=== PATIENT | male | born 1965 | race Caucasian/White ===

== ENCOUNTER 2016-10-09 12:09 | Emergency (ER) | payer BC ==
[2016-10-09 12:39] VITALS: BP 148/105
--- NOTE | 2016-10-09 14:11 | UC ---
FLU HPI - HPI Summary HPI Summary: 1.5 WEEKS OF SINUS PRESSURE AND DISCOMFORT, WENT TO PRIMARY CARE AND GOT ANTIBIOTICS, AMOXICILLIN LIQUID, BUT THE DOSE WAS SAME DOSE FOR 7 YEAR OLD CHILD. SINUS PRESSURE AND COUGH GETTING WORSE, BUT YESTERDAY DEVELOPED FEVER, CHILLS, MUSCLE ACHES AND SORE STROAT. TODAY DAUGHTER WAS DIAGNOSED WITH POSITIVE INFLUENZA SWAB TEST. CONCERN FOR FLU WELL FOR DOSAGE OF SINUS INFECTION ANTIBIOTIC. - History of Current Complaint Chief Complaint: UCGeneralIllness Stated Complaint: FLU COMPLAINT WITH LIGHTHEADNESS Time Seen by Provider: 10/09/16 12:41 Hx Obtained From: Patient Onset/Duration: Sudden Onset, Gradual Onset, Lasting Weeks, Worse Since - YESTERDAY Pain Intensity: 6 Pain Scale Used: 0-10 Numeric Associated Signs & Symptoms: Positive: Fever, Myalgia, Cough, Nasal Congestion Related Hx: Possible Flu/Infectious Exposure - Allergy/Home Medications Allergies/Adverse Reactions: Allergies Allergy/AdvReac Type Severity Reaction Status Date / Time No Known Allergies Allergy Verified 08/26/16 11:06 PMH/Surg Hx/FS Hx/Imm Hx Previously Healthy: Yes Endocrine History Of: Reports: Diabetes, Thyroid Disease Cardiovascular History Of: Reports: Hypertension - Surgical History Surgical History: Yes Surgery Procedure, Year, and Place: Testicular Cancer Testicle removed. Exploratory abdominal surgery, toe-nail surgery. Knee arthroscopy, Chest biopsies. - Family History Known Family History: Positive: Other - prostate CA - Social History Occupation: Employed Full-time Lives: With Family Alcohol Use: Rare Substance Use Type: None Smoking Status (MU): Never Smoked Tobacco Type: Smokeless Tobacco Amount Used/How Often: 1 can/day Length of Time of Smoking/Using Tobacco: 10 years Have You Smoked in the Last Year: No When Did the Patient Quit Smoking/Using Tobacco: 20 YEARS AGO Cessation Counseling: Patient Advised to Stop - Immunization History Most Recent Influenza Vaccination: 2016 Most Recent Tetanus Shot: UNSURE Review of Systems Constitutional: Fever, Chills Skin: Negative Eyes: Negative ENT: Sore Throat, Nasal Discharge Respiratory: Cough Cardiovascular: Negative Gastrointestinal: Negative Genitourinary: Negative Motor: Negative Neurovascular: Negative Musculoskeletal: Arthralgia, Myalgia Neurological: Negative Psychological: Negative All Other Systems Reviewed And Are Negative: Yes Physical Exam Triage Information Reviewed: Yes Appearance: No Pain Distress, Well-Nourished, Ill-Appearing - MILD Vital Signs: Initial Vital Signs Temp 98.3 F 10/09/16 12:27 Pulse 78 10/09/16 12:27 Resp 16 10/09/16 12:27 BP 148/105 10/09/16 12:27 Pulse Ox 97 10/09/16 12:27 Vital Signs Reviewed: Yes Eye Exam: Normal Eyes: Positive: Conjunctiva Clear ENT Exam: Normal ENT: Positive: Normal ENT inspection, Hearing grossly normal, Pharynx normal, TMs normal Dental Exam: Normal Neck exam: Normal Neck: Positive: Supple, Nontender, No Lymphadenopathy Respiratory Exam: Normal Respiratory: Positive: Chest non-tender, Lungs clear, Normal breath sounds, No respiratory distress, No accessory muscle use Cardiovascular Exam: Normal Cardiovascular: Positive: RRR, No Murmur, Pulses Normal Abdominal Exam: Normal Abdomen Description: Positive: Nontender, No Organomegaly Musculoskeletal Exam: Normal Musculoskeletal: Positive: Strength Intact, ROM Intact Neurological Exam: Normal Psychological Exam: Normal Skin Exam: Normal Flu Course/Dx - Differential Dx/Diagnosis Differential Diagnosis/HQI/PQRI: Influenza Provider Diagnoses: SINUSITIS. INFLUENZA Discharge - Discharge Plan Condition: Stable Disposition: HOME Prescriptions: Amoxicillin/Clavulanate TAB* [Augmentin TAB 875*] 875 mg PO BID #20 tab Benzonatate CAP* [Tessalon CAP*] 100 mg PO TID PRN #15 cap PRN Reason: Cough Oseltamivir CAP* [Tamiflu CAP*] 75 mg PO BID #10 cap Patient Education Materials: Sinusitis (ED), Influenza (ED) Referrals: Sofia Jiménez MD [Primary Care Provider] -
== END 2016-10-09 13:50 | disposition home or self-care (01) ==
LOC: UCEAST 12:09
DX: J11.1 Influenza due to unidentified influenza virus with other respiratory manifestations (principal); J32.9 Chronic sinusitis, unspecified; F17.220 Nicotine dependence, chewing tobacco, uncomplicated
CPT/HCPCS: 87502; 99211; G0463

== ENCOUNTER 2016-12-12 12:43 | Emergency (ER) | payer BC ==
[2016-12-12 13:51] VITALS: BP 194/99
[2016-12-12] MEDS ORDERED: Tetan/Diph/Pertus SYR(Tdap)* 0.5 ML SYR(BOOSTRIX) use SYR IM ONE (14:26)
[2016-12-12] MEDS ORDERED: Sulfamethox/Trimethoprim DS 800/160* TAB PO ONE (14:26)
[2016-12-12] MEDS ORDERED: Sodium Bicarbonate 8.4% IV* 50 ML VIAL ONE (14:47)
[2016-12-12] MEDS ORDERED: Lidocaine 1% MPF* 2 ML VIAL ONE (14:47)
--- NOTE | 2016-12-12 15:46 | UC ---
Reza Martins Alok, scribed for Liz German MD on 12/12/16 at 1416 . Skin Complaint HPI - HPI Summary HPI Summary: 51 y/o male presents to the for an abscess on his left thigh with redness/ swelling. Pt stats that what began as a small pimple 5 days ago progressed during the following days into the larger abscess it is now. Pt denies any fever though he has been taking ibuprofen frequently. Pt denies any groin lumps. PCP Dr. Mccormack in [place]. PMHx includes HTN and NIDDM. - History of Current Complaint Chief Complaint: UCWounds Time Seen by Provider: 12/12/16 13:33 Stated Complaint: RED AREA ON LEG Hx Obtained From: Patient Onset/Duration: Gradual Onset, Lasting Days, Still Present Timing: Constant Onset Severity: Moderate Current Severity: Moderate Location: Other - left thigh Character: Swelling, Redness Aggravating: Nothing Alleviating: Nothing Associated Signs & Symptoms: Positive: Rash - Allergy/Home Medications Allergies/Adverse Reactions: Allergies Allergy/AdvReac Type Severity Reaction Status Date / Time No Known Allergies Allergy Verified 12/12/16 13:51 Review of Systems Constitutional: Negative Skin: Rash Eyes: Negative ENT: Negative Respiratory: Negative Cardiovascular: Negative Gastrointestinal: Negative Genitourinary: Negative Motor: Negative Neurovascular: Negative Musculoskeletal: Negative Neurological: Negative Psychological: Negative All Other Systems Reviewed And Are Negative: Yes PMH/Surg Hx/FS Hx/Imm Hx Endocrine History Of: Reports: Diabetes, Thyroid Disease Cardiovascular History Of: Reports: Hypertension - Surgical History Surgical History: Yes Surgery Procedure, Year, and Place: Testicular Cancer Testicle removed. Exploratory abdominal surgery, toe-nail surgery. Knee arthroscopy, Chest biopsies. - Family History Known Family History: Positive: Other - prostate CA Negative: Diabetes - Social History Alcohol Use: Rare Substance Use Type: None Smoking Status (MU): Never Smoked Tobacco Type: Smokeless Tobacco Amount Used/How Often: 1 can/day Length of Time of Smoking/Using Tobacco: 10 years Have You Smoked in the Last Year: No When Did the Patient Quit Smoking/Using Tobacco: 20 YEARS AGO - Immunization History Most Recent Influenza Vaccination: 2016 Most Recent Tetanus Shot: UNSURE Physical Exam Triage Information Reviewed: Yes Appearance: Well-Nourished Vital Signs: Initial Vital Signs Temp 98.0 F 12/12/16 13:42 Pulse 80 12/12/16 13:42 Resp 20 12/12/16 13:42 BP 194/99 12/12/16 13:42 Pulse Ox 98 12/12/16 13:42 Vital Signs Reviewed: Yes Eye Exam: Normal ENT Exam: Normal Neck exam: Normal Respiratory Exam: Normal - No dypnea, No tachypnea, Normal respiratory rate Cardiovascular Exam: Normal - Heart Rate regular, good general skin color, good capillary refill Abdomen Description: Positive: Nontender, Soft Bowel Sounds: Positive: Present Musculoskeletal Exam: Normal Musculoskeletal: Positive: Strength Intact Neurological Exam: Normal - nonfocal, grossly intact Psychological Exam: Normal - conversing easily and appropriately Skin Exam: Other - Left thigh anterior area of redness. Approximately 14 cm x 12 cm area of central fluctulance. 2.5 cm x 3 cm central area of necrosis. Course/Dx - Course Course Of Treatment: Incision and drainage Abscess: Time out and consent obtained. Local anesthesia via 5cc 1% lidocain with 1:10 sodium bicarbonate buffer. I/D via # 11 blade. Yellow white purulent material returned approx 3cc. Wound gently explored. Irrigated with Normal saline. Packed gently with iodoform gauze. Reviewed wound care instructions and need for follow up. Questions answered to the best of my ability. Tolerated well. Bactrim po x 1 here. Rx Bactrim and augmentin, pending clinical progress and wound cx results. Reviewed (precautionary) MRSA instructions. Pt has blood glucose machine at home - will keep close eye on his blood sugars. See avs instructions. - Diagnoses Provider Diagnoses: Left ant thigh cellulitis. Left ant thigh abscess Discharge - Discharge Plan Condition: Stable Disposition: HOME Prescriptions: Amoxicillin/Clavulanate TAB* [Augmentin TAB 875*] 875 mg PO BID #20 tab Sulfamethox/Trimethoprim DS* [Bactrim DS 800/160 TAB*] 1 tab PO BID #20 tab Patient Education Materials: Diphtheria/Acellular Pertussis/Tetanus Booster Vaccine (Tdap) (Injection), Cellulitis (ED), Abscess Incision and Drainage (ED) Forms: *Work Release Referrals: Sofia Jiménez MD [Primary Care Provider] - Additional Instructions: Avoid astringents (ex no rubbing alcohol, no hydrogen peroxide) Keep dressing on until Yenifer (2 days) unless soaks through. Avoid getting the wound wet until wound has been rechecked. Avoid soaking in tub until wound closed. Wound culture has been sent. The documentation as recorded by the yuryibeReza Alok accurately reflects the service I personally performed and the decisions made by me, Liz German MD.
== END 2016-12-12 15:52 | disposition home or self-care (01) ==
LOC: UCEAST 12:43
DX: L03.116 Cellulitis of left lower limb (principal); E11.9 Type 2 diabetes mellitus without complications; E07.9 Disorder of thyroid, unspecified; I10 Essential (primary) hypertension
CPT/HCPCS: 10060; 87070; 87077; 87186; 87205; 87640; 87641; 90471; 90715; 99212; A9270-GY; G0463

== ENCOUNTER 2016-12-14 08:32 | Emergency (ER) | payer BC ==
[2016-12-14] MEDS ORDERED: Lidocaine 4% TOPICAL* 50 ML TOP.SOLN TOPICAL ONE (08:37)
[2016-12-14 08:45] VITALS: BP 146/87
--- NOTE | 2016-12-14 15:14 | UC ---
Reza Martins Alok, scribed for Liz German MD on 12/14/16 at 0859 . HPI Wound/Suture Re-check - HPI Summary HPI Summary: 51 y/o male last visited the two days ago for an abscess on his left thigh returns to the to re-check his wound. Old report states that pt's abscess began approximately one week ago as a small pimple and then progressed in the following days to an erythematous abscess with swelling and pruritis. Pt denied any fever, cough, or SOB. Today, pt states he changed his gauze 3 times since last visit and noted some purulence. Feels like wound has improved. Still red , less sensitive. PMHx includes NIDDM and has NKDA. - History Of Current Complaint Chief Complaint: UCGeneralIllness Stated Complaint: WOUND RECHECK Hx Obtained From: Patient Onset/Duration: Gradual Onset, Lasting Days, Still Present Severity: Moderate - Allergies/Home Medications Allergies/Adverse Reactions: Allergies Allergy/AdvReac Type Severity Reaction Status Date / Time No Known Allergies Allergy Verified 12/14/16 08:39 Home Medications: Home Medications Acetaminophen TAB* [Tylenol TAB*] 650 mg PO Q4H PRN 12/14/16 [History Confirmed 12/14/16] PMH/Surg Hx/FS Hx/Imm Hx Previously Healthy: No - dm. Endocrine History Of: Reports: Diabetes, Thyroid Disease Cardiovascular History Of: Reports: Hypertension - Surgical History Surgical History: Yes Surgery Procedure, Year, and Place: Testicular Cancer Testicle removed. Exploratory abdominal surgery, toe-nail surgery. Knee arthroscopy, Chest biopsies. - Family History Known Family History: Positive: Other - prostate CA Negative: Diabetes - Social History Occupation: Employed Full-time Lives: With Family Alcohol Use: Rare Substance Use Type: None Smoking Status (MU): Never Smoked Tobacco Type: Smokeless Tobacco Amount Used/How Often: 1 can/day Length of Time of Smoking/Using Tobacco: 10 years Have You Smoked in the Last Year: No When Did the Patient Quit Smoking/Using Tobacco: 20 YEARS AGO - Immunization History Most Recent Influenza Vaccination: 2016 Most Recent Tetanus Shot: UNSURE Review of Systems Constitutional: Negative Skin: Other - Left ant thigh with abscess I/D site approx 1cmL x .75cmW x 1cmD. Undermined circumferential max 1.2cm. Wound base red. Gently cleansed and irrigated w/ effluent approx that of affluent. No foul odor. The wick was soaked with dark red, thick drainage. Redness peribabcess site less that 2 days ago, minimal warm to touch. Previously noted white pimples have resolved. Eyes: Negative ENT: Negative Respiratory: Negative Cardiovascular: Negative Gastrointestinal: Negative Genitourinary: Negative Motor: Negative Neurovascular: Negative Musculoskeletal: Negative Neurological: Negative Psychological: Negative All Other Systems Reviewed And Are Negative: Yes Physical Exam Triage Information Reviewed: Yes Appearance: Well-Nourished Vital Signs: Initial Vital Signs Temp 97.2 F 12/14/16 08:41 Pulse 67 12/14/16 08:41 Resp 18 12/14/16 08:41 BP 146/87 12/14/16 08:41 Pulse Ox 97 12/14/16 08:41 Vital Signs Reviewed: Yes Eye Exam: Normal ENT Exam: Normal Respiratory Exam: Normal - No dyspnea, no tachypnea, normal respiratory rate Cardiovascular Exam: Normal - Heart rate regular, good general skin color, good capillary refill Abdominal Exam: Normal Abdomen Description: Positive: Nontender, Soft Bowel Sounds: Positive: Present Musculoskeletal Exam: Normal Musculoskeletal: Positive: Strength Intact Neurological Exam: Normal - Nonfocal, Grossly intact Psychological Exam: Normal - Conversin easily and appropriately Skin Exam: Other - Open wound 0.8 x .5 x .8 cm. Undermining circumferential 1.2 cm Course/Dx - Course Course Of Treatment: See PE radha skin. Reviewed cx results (still pending final ) with pt. He will continue abx until cx results back. Mr. Jeff seems pleased with care and progress. Adamantly wants to care for his ulcer from here on out without having to come to the doctor. He will however, check in with his primary care physician, hopefully this week. Also - referral to Wound Care Center at [facility] if he would like further chronic wound care assistatnce (he can check with his doctor about this as well). See AVS instructions - Differential Dx - Laceration/Wound Provider Diagnoses: Abscess recheck. Cellulitis recheck Discharge - Discharge Plan Condition: Stable Disposition: HOME Patient Education Materials: Abscess Follow-up (ED) Referrals: Sofia Jiménez MD [Primary Care Provider] - [facility] [Outside] Additional Instructions: Please follow up with Dr Jiménez early next week. Please call back to see about possible antibiotic modifications Okay to shower pat dry in one week No baths or soaking until wound completely closed Seek medical attention for worse or new problems in the meantime [facility] Wound care center at [phone] The documentation as recorded by the yuryibReza michael Alok accurately reflects the service I personally performed and the decisions made by me, Liz German MD.
== END 2016-12-14 09:33 | disposition home or self-care (01) ==
LOC: UCEAST 08:32
DX: L02.416 Cutaneous abscess of left lower limb (principal); L03.116 Cellulitis of left lower limb; I10 Essential (primary) hypertension; F17.220 Nicotine dependence, chewing tobacco, uncomplicated
CPT/HCPCS: 99212; G0463

== ENCOUNTER 2017-07-06 17:59 | Emergency (ER) | payer BC ==
[2017-07-06 18:18] VITALS: BP 169/92
--- NOTE | 2017-07-06 18:47 | UC ---
Skin Complaint HPI - HPI Summary HPI Summary: This is a 51 yo male with DM and HTN who presents with c/o tick bite and ST/ear pain. He noticed the tick this afternoon and was able to remove the body, but left the head. He states it was not engorged. Unsure how long it had been in place. He also reports a ST and L ear pain for a few days. No fever, chills, cough or SOB. - History of Current Complaint Chief Complaint: UCSkin Stated Complaint: TICK ON LEG - Allergy/Home Medications Allergies/Adverse Reactions: Allergies Allergy/AdvReac Type Severity Reaction Status Date / Time No Known Allergies Allergy Verified 07/06/17 18:18 Home Medications: Home Medications Aspirin TAB* [Aspirin 325 MG TAB*] 325 mg PO DAILY 07/06/17 [History Confirmed 07/06/17] Pseudoephedrine-Guaifenesin [Mucinex D 60-600 mg] 1 tab PO BID 07/06/17 [ History Confirmed 07/06/17] Review of Systems Constitutional: Negative Skin: Other - tick bite Eyes: Negative ENT: Sore Throat, Ear Ache Respiratory: Negative Cardiovascular: Negative Gastrointestinal: Negative Genitourinary: Negative Motor: Negative Neurovascular: Negative Musculoskeletal: Negative Neurological: Negative Psychological: Negative Is Patient Immunocompromised?: No All Other Systems Reviewed And Are Negative: Yes PMH/Surg Hx/FS Hx/Imm Hx Endocrine History: Diabetes Cardiovascular History: Hypertension - Surgical History Surgical History: Yes Surgery Procedure, Year, and Place: Testicular Cancer Testicle removed. Exploratory abdominal surgery, toe-nail surgery. Knee arthroscopy, Chest biopsies. - Family History Known Family History: Positive: Other - prostate CA Negative: Diabetes - Social History Alcohol Use: Occasionally Substance Use Type: None Smoking Status (MU): Heavy Every Day Tobacco Smoker Type: Smokeless Tobacco Amount Used/How Often: 1 can/day Length of Time of Smoking/Using Tobacco: 10 years Have You Smoked in the Last Year: No When Did the Patient Quit Smoking/Using Tobacco: 20 YEARS AGO - Immunization History Most Recent Influenza Vaccination: 2016 Most Recent Tetanus Shot: UNSURE Physical Exam Triage Information Reviewed: Yes Appearance: Well-Appearing Vital Signs: Initial Vital Signs Temp 98.6 F 07/06/17 18:09 Pulse 76 07/06/17 18:09 Resp 16 07/06/17 18:09 BP 169/92 07/06/17 18:09 Pulse Ox 99 07/06/17 18:09 Vital Signs Reviewed: Yes ENT: Positive: Pharynx normal, Nasal congestion, TM dull - bilateral serous effusion. Negative: Tonsillar swelling, Tonsillar exudate Neck: Positive: Supple, Nontender, No Lymphadenopathy Respiratory: Positive: Lungs clear, Normal breath sounds. Negative: Crackles, Rhonchi, Wheezing Cardiovascular: Positive: RRR, No Murmur Abdomen Description: Positive: Nontender, Soft Musculoskeletal Exam: Normal Neurological Exam: Normal Psychological Exam: Normal Psychological: Positive: Normal Response To Family Skin: Positive: Other - partial retained tick on the posterior aspect of his R lower leg Course/Dx - Course Course Of Treatment: This is a 51 yo male with DM and HTN who presents with c/o tick bite and ST and earache. The remaining part of the tick was successfully removed. ENT inspection showed mild serous effusion. Recommended Lyme prophylaxis as he was unsure how long it had been in place for. - Differential Diagnoses - Skin Complaint Differential Diagnoses: Abscess, Cellulitis, Tick Born Illness - Diagnoses Provider Diagnoses: 1. Tick bite - Lyme prophylaxis. 2. URI Discharge - Discharge Plan Condition: Stable Disposition: HOME Prescriptions: Doxycycline (Monohydrate) [Doxycycline Monohydrate] 200 mg PO ONCE #2 cap Patient Education Materials: Tick Bite (ED), Upper Respiratory Infection (ED) Referrals: Sofia Jiménez MD [Primary Care Provider] - If Needed Additional Instructions: Instructions: 1. Take antibiotic as directed 2. Monitor bite for signs of infection 3. Use decongestants for treatment of your earache and sore throat, this is likely a viral process
== END 2017-07-06 18:48 | disposition home or self-care (01) ==
LOC: UCEAST 17:59
DX: S00.469A Insect bite (nonvenomous) of unspecified ear, initial encounter (principal); Z79.82 Long term (current) use of aspirin; E11.9 Type 2 diabetes mellitus without complications; I10 Essential (primary) hypertension; F17.210 Nicotine dependence, cigarettes, uncomplicated; J06.9 Acute upper respiratory infection, unspecified; W57.XXXA Bitten or stung by nonvenomous insect and other nonvenomous arthropods, initial encounter; Y92.9 Unspecified place or not applicable
CPT/HCPCS: 99212; G0463

== ENCOUNTER 2017-12-27 07:50 | Emergency (ER) | payer BC ==
--- OUTSIDE RECORDS SUMMARY | 2017-12-27 07:57 | XMS REPORT ---
:1965 External Reference #:[id number] Author Organization [facility] Address [address] [facility]/[address] [place] [address] Phone [phone] Care Team Providers Name Role Phone Sofia Jiménez MD Care Team Information Form Setter Unavailable Payers Type Date Identification Numbers Payment Provider Subscriber Commercial Policy Number: [id number] /[facility] Whitley Joseph PayID: [id number] [address] [address] [place] [address] Problems Date Description Provider Status Onset: 11/29/2011 Benign essential hypertension Sofia Jiménez M.D. Active Onset: 11/29/2011 Type II diabetes mellitus uncontrolled Sofia Jiménez M.D. Active Onset: 11/29/2011 Mixed hyperlipidemia Sofia Jiménez M.D. Active Onset: 11/29/2011 Hypothyroidism Sofia Jiménez M.D. Active Onset: 11/29/2011 Malaise and fatigue Sofia Jiménez M.D. Active Onset: 11/29/2011 Anxiety state Sofia Jiménez M.D. Active Onset: 11/29/2011 Overweight Sofia Jiménez M.D. Active Onset: 02/02/2013 Allergic rhinitis Sofia Jiménez M.D. Active Onset: 02/02/2013 Constipation Sofia Jiménez M.D. Active Onset: 07/11/2015 Essential hypertension Sofia Jiménez M.D. Active Family History Date Family Member(s) Problem(s) Comments Father 70 Father Prostate Cancer in remission Mother smoking related health issues Mother 68 Children 3 Siblings 1 Social History Type Date Description Comments Marital Status Legal Status: ETOH Use Occasionally consumes alcohol Smoking Patient is a former smoker Smoking Pt does chew Skoll Daily Caffeine Consumes on average 1 cup of regular coffee per day Daily Caffeine Consumes on average 1 soda per day Daily Caffeine Consumes on average 1 liter of iced tea per day Daily Caffeine Occasionally Allergies, Adverse Reactions, Alerts Date Description Reaction Status Severity Comments 03/13/2012 NKDA active Medications Medication Date Status Form Strength Qnty SIG Indications Ordering Provider Cephalexin 12/15/ Hx Suspension 250mg/5ML 300ml 10 ml by L03.012 Tino , 2017 - Rec mouth Sofia Eddy, 12/25/ three M.DZac 2018 times a day Viagra 10/18/ Active Tablets 100mg 10tabs 1/2-1 tab N52.9 Tino2017 by mouth Sofia Eddy, every day M.DZac as needed Vitamin D3 11/07/ Active Tablets 5000Unit 90tabs 1 by mouth E55.9 Tino , 2015 every day Sofia Eddy M.D. Duetact 11/15/ Active Tablets 30-2mg 90tabs 1 tab by E11.65 Tino, 2013 mouth Sofia Eddy everyday M.D. Free Style 11/15/ Active 100uni uad to E11.65 Bola Jiménez Test 2013 ts check Kenia Pickett blood M.DZac glucose qid Lisinopril 03/24/ Active Tablets 20mg 90tabs take 1 I10 Tino 2011 tablet by Sofia Eddy mouth once M.D. daily E11.65 Aspirin 03/13/2012 Active Tablets 81mg 30tabs 1 every day E11.65 Sofia Jiménez M.D. E78.2 I10 Levoxyl 03/13/2012 Active Tablets 100mcg 90tabs 1 tab by E03.9 Tino mouth Ahmad every day MZac MZacDZac every morning Amoxicillin 10/14/2017 - Hx Suspension 400mg/5ML 200ml 10 ml by J20.9 Tino, 10/24/2017 Rec mouth Ahmad twice a Alejandro Eddy day D37.09 Sildenafil 10/14/2017 - Hx Tablets 20mg 30tabs 1-2 tab by N52.9 Tino, Citrate 10/18/2017 mouth every Ahmad day as Alejandro Eddy needed Amoxicillin 05/03/2017 - Hx Suspension 400mg/5 200ml 10 ml by J20.9 Tino, 05/12/2017 Rec ML mouth twice Ahmad a day Alejandro Eddy Ciprofloxacin 02/18/2017 - Hx Tablets 500mg 20tabs 1 by mouth A09 [facility] , HCL 02/28/2017 twice a day Ahmad Alejandro Eddy Amoxicillin 10/06/2016 - Hx Suspension 400mg/5 150ml 1 teaspoon J01.40 Tino, 10/16/2016 Rec ML by mouth Ahmad three times Bam Eddy. a day Amoxicillin 08/02/2016 - Hx Tablets 500mg 40tabs 2 by mouth J20.9 [facility] , 08/12/2016 twice a day Sofia Eddy M.D. Amoxicillin 06/25/2016 - Hx Suspension 400mg/5 200ml 2 teaspoon J02.9 Tino, 07/05/2016 Rec ML by mouth Ahmad twice a day Alejandro Eddy Amoxicillin 03/16/2016 - Hx Tablets 500mg 40tabs 2 by mouth J20.9 [facility] , 03/26/2016 twice a day Sofia Eddy M.D. Diflucan 07/11/2015 - Hx Tablets 100mg 20tabs 1 by mouth B35.6 Tino, 07/20/2015 twice a day Ahmad Alejandro Eddy Levaquin 08/19/2014 - Hx Tablets 500mg 10tabs 1 by mouth 466.0 Tino, 08/29/2014 every day Sofia Eddy M.D. 461.8 382.9 Cheratussin ac 08/19/2014 - Hx Syrup 100-10mg/5ML 500ml 2 teaspoon 786.2 Tino, 11/10/2014 by mouth Ahmad every 4 Alejandro Eddy hours as needed Amoxicillin 01/02/2014 - Hx Suspension 250mg/5ML 200ml 10ml by 465.9 Tino, 01/12/2014 Rec mouth Ahmad twice a M., M.D. day x10 days 462 786.2 Carafate 08/24/2013 - Hx Suspension 1GM/10ML 420ml 10ml po 789.07 Tino , 05/15/2014 tid 1 hour Sofia Eddy, before M.D. meals Nystatin 08/24/2013 - Hx Powder [id number] 15gm apply bid 477.8 Tino, 02/14/2014 /GM prn to Sofia Kelley., groin area M.D. Neosporin LT 02/02/2013 - Hx Ointment 1.5-1% 1Tube apply to 784.7 [facility] , 02/02/2013 affected Pamyasmany Kelley., area in M.D. nostril tid and prn Miralax 02/02/2013 - Hx Powder [id number] 1020gm 1-2 caps 564.00 [facility], 02/09/2013 by mouth Sofia Eddy, every day M.D. Bacitracin 02/02/2013 - Hx Ointment 500Unit/GM 30gm apply to 784.7 [facility], 02/09/2013 affected Dennisconchita Kelley., area bid M.D. prn till healed Lisinopril 03/23/2012 - Hx Tablets 10mg 30tabs 1 po qd [facility], 03/24/2012 Sofia Eddy M.D. Januvia 03/13/2012 - Hx Tablets 100mg 30tabs 1 tabs by [facility], 03/23/2012 mouth Sofia Eddy, every day M.DZac Actos 03/13/2012 - Hx Tablets 30mg 90tabs 1 by mouth 250.02 [facility], 11/15/2013 every day Sofia Eddy M.D. Tessalon Perles - Hx Capsules 100mg 15caps Three Unknown 11/08/2016 Times Daily prn For Cough Tamiflu - Hx Capsules 75mg 10caps Twice Unknown 11/08/2016 Daily Augmentin - Hx Tablets 500-125mg 20tabs Twice Unknown 10/13/2016 Daily Amoxicillin/Clav - Hx Tablets 875-125mg take 1 Unknown ulanate 10/13/2016 tablet by Potassium mouth twice a day Hydrocodone-Acet - Hx Tablets 5-325mg take 1 Unknown aminophen 11/08/2016 tablet by mouth every 6 hours for back pain --Max 4/Day Methocarbamol - Hx Tablets 750mg Take 1 Unknown 11/08/2016 Tablet Four Times Daily as Needed For Muscle Spasm Ra Vitamin D-3 - Hx Capsules 5000Unit Take 1 Unknown 11/08/2016 Capsule By Mouth Once Daily Immunizations CPT Code Status Date Vaccine Lot # [id number] Given 07/11/2015 Flu Vaccine [id number] Given 06/07/2014 Flu Vaccine [id number] Given 07/03/2010 Flu Vaccine [id number] Given 02/13/2010 Td Preservative Free, 7 Years And Older Vital Signs Date Vital Result Comment 12/15/2017 BP Systolic 132 mmHg BP Diastolic 82 mmHg Height 72 inches 6'0" Weight 251.00 lb BMI (Body Mass Index) 34.0 kg/m2 Heart Rate 90 /min Respiratory Rate 18 /min 11/04/2017 BP Systolic 120 mmHg BP Diastolic 82 mmHg Height 72 inches 6'0" Weight 249.00 lb BMI (Body Mass Index) 33.8 kg/m2 Heart Rate 84 /min Respiratory Rate 18 /min 10/14/2017 BP Systolic 120 mmHg BP Diastolic 82 mmHg Height 72 inches 6'0" Weight 249.00 lb BMI (Body Mass Index) 33.8 kg/m2 Heart Rate 79 /min Body Temperature 97.3 F Respiratory Rate 18 /min 08/26/2017 BP Systolic 122 mmHg BP Diastolic 82 mmHg Height 72 inches 6'0" Weight 252.00 lb BMI (Body Mass Index) 34.2 kg/m2 Heart Rate 85 /min Respiratory Rate 18 /min 05/03/2017 BP Systolic 140 mmHg BP Diastolic 88 mmHg Height 72 inches 6'0" Weight 247.00 lb BMI (Body Mass Index) 33.5 kg/m2 Heart Rate 84 /min Body Temperature 97.9 F Respiratory Rate 18 /min 02/18/2017 BP Systolic 120 mmHg BP Diastolic 64 mmHg Height 72 inches 6'0" Weight 247.00 lb BMI (Body Mass Index) 33.5 kg/m2 Heart Rate 74 /min Respiratory Rate 16 /min 12/03/2016 BP Systolic 132 mmHg BP Diastolic 78 mmHg Height 72 inches 6'0" Weight 252.00 lb BMI (Body Mass Index) 34.2 kg/m2 Heart Rate 113 /min Respiratory Rate 18 /min 10/06/2016 BP Systolic 146 mmHg BP Diastolic 72 mmHg Height 72 inches 6'0" Weight 250.00 lb BMI (Body Mass Index) 33.9 kg/m2 Heart Rate 99 /min Respiratory Rate 16 /min 06/25/2016 BP Systolic 134 mmHg BP Diastolic 82 mmHg Height 72 inches 6'0" Weight 243.00 lb BMI (Body Mass Index) 33.0 kg/m2 Heart Rate 78 /min Respiratory Rate 20 /min 03/16/2016 BP Systolic 124 mmHg BP Diastolic 72 mmHg Height 72 inches 6'0" Weight 245.00 lb BMI (Body Mass Index) 33.2 kg/m2 Heart Rate 78 /min Respiratory Rate 18 /min 11/07/2015 BP Systolic 141 mmHg BP Diastolic 85 mmHg Height 72 inches 6'0" Weight 248.00 lb BMI (Body Mass Index) 33.6 kg/m2 Heart Rate 68 /min Respiratory Rate 18 /min 07/11/2015 BP Systolic 130 mmHg BP Diastolic 83 mmHg Height 72 inches 6'0" Weight 249.00 lb BMI (Body Mass Index) 33.8 kg/m2 Heart Rate 99 /min Respiratory Rate 18 /min 12/25/2014 BP Systolic 125 mmHg BP Diastolic 86 mmHg Height 72 inches 6'0" Weight 249.00 lb BMI (Body Mass Index) 33.8 kg/m2 Heart Rate 85 /min Respiratory Rate 18 /min 08/19/2014 BP Systolic 142 mmHg BP Diastolic 94 mmHg Height 72 inches 6'0" Weight 246.00 lb BMI (Body Mass Index) 33.4 kg/m2 Heart Rate 87 /min Body Temperature 97.0 F Respiratory Rate 18 /min 06/07/2014 BP Systolic 134 mmHg BP Diastolic 88 mmHg Height 72 inches 6'0" Weight 252.00 lb BMI (Body Mass Index) 34.2 kg/m2 Heart Rate 76 /min Respiratory Rate 20 /min 03/12/2014 BP Systolic 122 mmHg BP Diastolic 73 mmHg Height 72 inches 6'0" Weight 242.00 lb BMI (Body Mass Index) 32.8 kg/m2 Heart Rate 71 /min Respiratory Rate 18 /min 01/02/2014 BP Systolic 128 mmHg BP Diastolic 79 mmHg Height 72 inches 6'0" Weight 242.00 lb BMI (Body Mass Index) 32.8 kg/m2 Heart Rate 97 /min Body Temperature 98.0 F Respiratory Rate 18 /min 11/15/2013 BP Systolic 122 mmHg BP Diastolic 84 mmHg Height 72 inches 6'0" Weight 235.00 lb BMI (Body Mass Index) 31.9 kg/m2 Heart Rate 93 /min Respiratory Rate 18 /min 11/05/2013 BP Systolic 128 mmHg BP Diastolic 88 mmHg Height 72 inches 6'0" Weight 230.00 lb BMI (Body Mass Index) 31.2 kg/m2 Heart Rate 60 /min Respiratory Rate 20 /min 08/24/2013 BP Systolic 137 mmHg BP Diastolic 88 mmHg Height 72 inches 6'0" Weight 245.00 lb BMI (Body Mass Index) 33.2 kg/m2 Heart Rate 85 /min Respiratory Rate 18 /min 02/02/2013 BP Systolic 150 mmHg BP Diastolic 80 mmHg Height 72 inches 6'0" Weight 238.00 lb BMI (Body Mass Index) 32.3 kg/m2 Heart Rate 94 /min Respiratory Rate 20 /min 06/16/2012 BP Systolic 120 mmHg BP Diastolic 70 mmHg Height 72 inches 6'0" Heart Rate 80 /min Last Menstrual Period 0 Respiratory Rate 15 /min 03/23/2012 BP Systolic 143 mmHg BP Diastolic 95 mmHg Height 72 inches 6'0" Weight 235.00 lb BMI (Body Mass Index) 31.9 kg/m2 Heart Rate 87 /min Respiratory Rate 14 /min Results Test Date Test Result H/L Range Note CBC Auto Diff 08/25/2017 White Blood Count 4.5 10^3/uL 3.5-10.8 Red Blood Count 4.64 10^6/uL 4.0-5.4 Hemoglobin 14.8 g/dL 14.0-18.0 Hematocrit 43 % 42-52 Mean Corpuscular Volume 92 fL 80-94 Mean Corpuscular Hemoglobin 32 pg High 27-31 Mean Corpuscular HGB Conc 35 g/dL 31-36 Red Cell Distribution Width 13 % 10.5-15 Platelet Count 172 10^3/uL 150-450 Mean Platelet Volume 11 um3 High 7.4-10.4 Abs Neutrophils 1.8 10^3/uL 1.5-7.7 Abs Lymphocytes 2.1 10^3/uL 1.0-4.8 Abs Monocytes 0.5 10^3/uL 0-0.8 Abs Eosinophils 0.1 10^3/uL 0-0.6 Abs Basophils 0 10^3/uL 0-0.2 Abs Nucleated RBC 0.01 10^3/uL Granulocyte % 40.8 % 38-83 Lymphocyte % 45.4 % 25-47 Monocyte % 10.2 % High 1-9 Eosinophil % 2.9 % 0-6 Basophil % 0.7 % 0-2 Nucleated Red Blood Cells % 0.2 Comp Metabolic Panel 08/25/2017 Sodium 135 mmol/L 133-145 Potassium 4.2 mmol/L 3.5-5.0 Chloride 101 mmol/L 101-111 Co2 Carbon Dioxide 29 mmol/L 22-32 Anion Gap 5 mmol/L 2-11 Glucose 280 mg/dL High 70-100 Blood Urea Nitrogen 15 mg/dL 6-24 Creatinine 0.91 mg/dL 0.67-1.17 BUN/Creatinine Ratio 16.5 8-20 Calcium 9.5 mg/dL 8.6-10.3 Total Protein 7.0 g/dL 6.4-8.9 Albumin 4.3 g/dL 3.2-5.2 Globulin 2.7 g/dL 2-4 Albumin/Globulin Ratio 1.6 1-3 Total Bilirubin 0.80 mg/dL 0.2-1.0 Alkaline Phosphatase 60 U/L 34-104 Alt 28 U/L 7-52 Ast 17 U/L 13-39 Egfr Non- 88.2 >60 Egfr 113.4 >60 1 Lipid Profile (Trig/Chol/HDL) 08/25/2017 Triglycerides 294 mg/dL 2 Cholesterol 199 mg/dL 3 HDL Cholesterol 34.7 mg/dL 4 LDL Cholesterol 106 mg/dL 5 Laboratory test finding 08/25/2017 TSH (Thyroid Stim Horm) 4.71 mcIU/mL 0.34-5.60 Free T4 (Free Thyroxine) 1.12 ng/dL 0.61-1.12 Hemoglobin A1c (Glyco HGB) 8.4 % High 4.0-5.6 6 Uric Acid 5.0 mg/dL 4.4-7.6 Vitamin D Total 25(Oh) 15.4 ng/mL Low 20-50 Laboratory test finding 12/12/2016 Wound Culture/Sensi SEE RESULT BELOW 7, 8 MRSA/S. aureus Ssti PCR SEE RESULT BELOW 7, 9 CBS W/Automated Diff 12/02/2016 White Blood Count 4.5 10^3/uL 3.5-10.8 Red Blood Count 4.59 10^6/uL 4.0-5.4 Hemoglobin 14.4 g/dL 14.0-18.0 Hematocrit 42 % 42-52 Mean Corpuscular Volume 91 fL 80-94 Mean Corpuscular Hemoglobin 31 pg 27-31 Mean Corpuscular HGB Conc 35 g/dL 31-36 Red Cell Distribution Width 13 % 10.5-15 Platelet Count 175 10^3/uL 150-450 Mean Platelet Volume 10 um3 7.4-10.4 Abs Neutrophils 2.6 10^3/uL 1.5-7.7 Abs Lymphocytes 1.3 10^3/uL 1.0-4.8 Abs Monocytes 0.4 10^3/uL 0-0.8 Abs Eosinophils 0.1 10^3/uL 0-0.6 Abs Basophils 0.1 10^3/uL 0-0.2 Abs Nucleated RBC 0 10^3/uL Granulocyte % 57.9 % 38-83 Lymphocyte % 28.4 % 25-47 Monocyte % 9.5 % High 1-9 Eosinophil % 2.6 % 0-6 Basophil % 1.6 % 0-2 Nucleated Red Blood Cells % 0.1 Comprehensive Metabolic Panel 12/02/2016 Sodium 135 mmol/L 133-145 Potassium 4.5 mmol/L 3.5-5.0 Chloride 101 mmol/L 101-111 Co2 Carbon Dioxide 29 mmol/L 22-32 Anion Gap 5 mmol/L 2-11 Glucose 202 mg/dL High 70-100 Blood Urea Nitrogen 12 mg/dL 6-24 Creatinine 0.83 mg/dL 0.67-1.17 BUN/Creatinine Ratio 14.5 8-20 Calcium 9.2 mg/dL 8.6-10.3 Total Protein 6.5 g/dL 6.4-8.9 Albumin 4.0 g/dL 3.2-5.2 Globulin 2.5 g/dL 2-4 Albumin/Globulin Ratio 1.6 1-3 Total Bilirubin 0.80 mg/dL 0.2-1.0 Alkaline Phosphatase 50 U/L 34-104 Alt 25 U/L 7-52 Ast 15 U/L 13-39 Egfr Non- 98.5 >60 Egfr 126.6 >60 10 Laboratory test finding 12/02/2016 TSH (Thyroid Stim Horm) 3.32 mcIU/mL 0.34-5.60 Free T4 (Free Thyroxine) 1.02 ng/dL 0.61-1.12 Laboratory test finding 12/02/2016 Hemoglobin A1c (Glyco 7.9 % High Less than 6.0 11 HGB) Vitamin D Total 25(Oh) 15.6 ng/mL Low 30-50 Microalbumin,Random Urine 12/02/2016 Urine Creatinine 159.93 mg/dL Ur Microalbumin (mg/L) < 15.0 mg/L Urine Microalbumin/Creatinine TNP ug/mg <31 12 Laboratory test finding 12/02/2016 Uric Acid 5.6 mg/dL 4.4-7.6 LDL Cholesterol Direct 119 mg/dL 13 Rapid Influenza A & B 10/09/2016 Influenza A Molecular NEGATIVE Negative 14 Molecular Influenza B Molecular NEGATIVE Negative Comp Metabolic Panel 04/07/2016 Sodium 136 mmol/L 133-145 15 Potassium 4.5 mmol/L 3.5-5.0 15 Chloride 102 mmol/L 101-111 15 Co2 Carbon Dioxide 28 mmol/L 22-32 15 Anion Gap 6 mmol/L 2-11 15 Glucose 158 mg/dL High 70-100 15 Blood Urea Nitrogen 17 mg/dL 6-24 15 Creatinine 0.95 mg/dL 0.67-1.17 15 BUN/Creatinine Ratio 17.9 8-20 15 Calcium 9.3 mg/dL 8.6-10.3 15 Total Protein 6.8 g/dL 6.4-8.9 15 Albumin 4.3 g/dL 3.2-5.2 15 Globulin 2.5 g/dL 2-4 15 Albumin/Globulin Ratio 1.7 1-3 15 Total Bilirubin 0.80 mg/dL 0.2-1.0 15 Alkaline Phosphatase 47 U/L 34-104 15 Alt 20 U/L 7-52 15 Ast 16 U/L 13-39 15 Egfr Non- 84.6 >60 15 Egfr 108.8 >60 15, 16 Laboratory test finding 04/07/2016 CRP High Sensitivity 1.24 mg/L 15, 17 Lipid Profile (Trig/Chol/HDL) 04/07/2016 Triglycerides 181 mg/dL 15, 18 Cholesterol 209 mg/dL 15, 19 HDL Cholesterol 34.1 mg/dL 15, 20 LDL Cholesterol 139 mg/dL 15, 21 Laboratory test 04/07/2016 Hemoglobin A1c (Glyco 7.3 % High Less than 6.0 15, 22 finding HGB) Uric Acid 7.2 mg/dL 4.4-7.6 15, 23 Urine Microalbumin Random 04/07/2016 Urine Creatinine 226.00 mg/dL 15 Ur Microalbumin (mg/L) < 15.0 mg/L 15 Urine Microalbumin/Creatinine TNP ug/mg <31 15, 24 CBC Auto Diff 04/07/2016 White Blood Count 3.8 10^3/uL 3.5-10.8 15 Red Blood Count 4.67 10^6/uL 4.0-5.4 15 Hemoglobin 14.4 g/dL 14.0-18.0 15 Hematocrit 42 % 42-52 15 Mean Corpuscular Volume 91 fL 80-94 15 Mean Corpuscular Hemoglobin 31 pg 27-31 15 Mean Corpuscular HGB Conc 34 g/dL 31-36 15 Red Cell Distribution Width 12 % 10.5-15 15 Platelet Count 152 10^3/uL 150-450 15 Mean Platelet Volume 11 um3 High 7.4-10.4 15 Abs Neutrophils 2.1 10^3/uL 1.5-7.7 15 Abs Lymphocytes 1.1 10^3/uL 1.0-4.8 15 Abs Monocytes 0.4 10^3/uL 0-0.8 15 Abs Eosinophils 0.2 10^3/uL 0-0.6 15 Abs Basophils 0 10^3/uL 0-0.2 15 Abs Nucleated RBC 0 10^3/uL 15 Granulocyte % 54.8 % 38-83 15 Lymphocyte % 29.7 % 25-47 15 Monocyte % 10.1 % High 1-9 15 Eosinophil % 4.5 % 0-6 15 Basophil % 0.9 % 0-2 15 Nucleated Red Blood Cells % 0.1 15 Laboratory test 04/07/2016 TSH (Thyroid Stim 2.19 mcIU/mL 0.34-5.60 15, 25 finding Horm) Free T4 (Free Thyroxine) 1.01 ng/dL 0.61-1.12 15, 26 Vitamin D Total 25(Oh) 29.1 ng/mL Low 30-50 15, 27 Laboratory test finding 10/07/2015 Vitamin D Total 25(Oh) 16.5 ng/mL Low 30-50 28 Free T4 (Free Thyroxine) 0.89 ng/mL 0.61-1.12 29 TSH (Thyroid Stim Horm) 3.06 ?IU/mL 0.34-5.60 30 PSA Screening 0.526 ng/mL 0-4.000 31 Microalbumin,Random Urine 10/07/2015 Ur Microalbumin (mg/L) 10.0 mg/L Urine Creatinine 171.98 mg/dL Urine Microalbumin/Creatinine 5.8 ug/mg <31 Laboratory test finding 10/07/2015 Magnesium 1.9 mg/dL 1.9-2.7 32 LDL Cholesterol Profile 10/07/2015 Triglycerides 215 mg/dL 33 Cholesterol 214 mg/dL 34 HDL Cholesterol 31.8 mg/dL 35 LDL Cholesterol 139 mg/dL 36 Laboratory test finding 10/07/2015 CRP High Sensitivity 1.80 mg/L 37 Hemoglobin A1c (Glyco HGB) 7.0 % High Less than 6.0 38 Comprehensive Metabolic Panel 10/07/2015 Sodium 133 mmol/L 133-145 Potassium 4.3 mmol/L 3.5-5.0 Chloride 101 mmol/L 101-111 Co2 Carbon Dioxide 28 mmol/L 22-32 Anion Gap 4 mmol/L 2-11 Glucose 175 mg/dL High 70-100 Blood Urea Nitrogen 16 mg/dL 6-24 Creatinine 0.90 mg/dL 0.67-1.17 BUN/Creatinine Ratio 17.8 8-20 Calcium 8.9 mg/dL 8.6-10.3 Total Protein 6.8 g/dL 6.4-8.9 Albumin 4.4 g/dL 3.2-5.2 Globulin 2.4 g/dL 2-4 Albumin/Globulin Ratio 1.8 1-3 Total Bilirubin 0.80 mg/dL 0.2-1.0 Alkaline Phosphatase 50 U/L 34-104 Alt 24 U/L 7-52 Ast 17 U/L 13-39 Egfr Non- 90.1 >60 Egfr 115.8 >60 39 CBC W/Automated Diff 10/07/2015 White Blood Count 6.8 10^3/uL 3.5-10.8 Red Blood Count 4.68 10^6/uL 4.0-5.4 Hemoglobin 14.7 g/dL 14.0-18.0 Hematocrit 43 % 42-52 Mean Corpuscular Volume 93 fL 80-94 Mean Corpuscular Hemoglobin 32 pg High 27-31 Mean Corpuscular HGB Conc 34 g/dL 31-36 Red Cell Distribution Width 12 % 10.5-15 Platelet Count 159 10^3/uL 150-450 Mean Platelet Volume 10 um3 7.4-10.4 Abs Neutrophils 4.7 10^3/uL 1.5-7.7 Abs Lymphocytes 1.3 10^3/uL 1.0-4.8 Abs Monocytes 0.6 10^3/uL 0-0.8 Abs Eosinophils 0.2 10^3/uL 0-0.6 Abs Basophils 0 10^3/uL 0-0.2 Abs Nucleated RBC 0 10^3/uL Granulocyte % 68.8 % 38-83 Lymphocyte % 19.3 % Low 25-47 Monocyte % 8.7 % 1-9 Eosinophil % 2.5 % 0-6 Basophil % 0.7 % 0-2 Nucleated Red Blood Cells % 0.1 Laboratory test finding 04/14/2015 Throat Beta Strep SEE RESULT BELOW 40 Culture Comp Metabolic Panel 06/06/2014 Sodium 136 mmol/L 133-145 41 Potassium 3.9 mmol/L 3.7-5.6 41 Chloride 102 mmol/L 101-111 41 Co2 Carbon Dioxide 30 mmol/L 22-32 41 Anion Gap 4 mmol/L 2-11 41 Glucose 133 mg/dL High 70-100 41 Blood Urea Nitrogen 16 mg/dL 6-24 41 Creatinine 1.05 mg/dL 0.67-1.17 41 BUN/Creatinine Ratio 15.2 8-20 41 Calcium 9.2 mg/dL 8.6-10.3 41 Total Protein 6.6 g/dL 6.4-8.9 41 Albumin 4.3 g/dL 3.2-5.2 41 Globulin 2.3 g/dL 2-4 41 Albumin/Globulin Ratio 1.9 1-3 41 Total Bilirubin 0.80 mg/dL 0.2-1.0 41 Alkaline Phosphatase 48 U/L 34-104 41 Alt 25 U/L 7-52 41 Ast 20 U/L 13-39 41 Egfr Non- 76.0 >60 41 Egfr 97.8 >60 41, 42 CBC Auto Diff 06/06/2014 White Blood Count 4.2 10^3/uL Low 4.8-10.8 41 Red Blood Count 4.51 10^6/uL 4.0-5.4 41 Hemoglobin 14.6 g/dL 14.0-18.0 41 Hematocrit 41 % Low 42-52 41 Mean Corpuscular Volume 92 fL 80-94 41 Mean Corpuscular Hemoglobin 32 pg High 27-31 41 Mean Corpuscular HGB Conc 35 g/dL 31-36 41 Red Cell Distribution Width 12 % 10.5-15 41 Platelet Count 160 10^3/uL 150-450 41 Mean Platelet Volume 10 um3 7.4-10.4 41 Abs Neutrophils 2.1 10^3/uL 1.5-7.7 41 Abs Lymphocytes 1.4 10^3/uL 1.0-4.8 41 Abs Monocytes 0.4 10^3/uL 0-0.8 41 Abs Eosinophils 0.1 10^3/uL 0-0.6 41 Abs Basophils 0 10^3/uL 0-0.2 41 Abs Nucleated RBC 0 10^3/uL 41 Granulocyte % 51.4 % 38-83 41 Lymphocyte % 34.5 % 25-47 41 Monocyte % 10.3 % High 1-9 41 Eosinophil % 3.1 % 0-6 41 Basophil % 0.7 % 0-2 41 Nucleated Red Blood Cells % 0.1 41 Laboratory test finding 06/06/2014 Hemoglobin A1c 6.1 % High Less than 6.0 41, 43 Lipid Profile 06/06/2014 Triglycerides 145 mg/dL 41, 44 (Trig/Chol/HDL) Cholesterol 196 mg/dL 41, 45 HDL Cholesterol 36.7 mg/dL 41, 46 LDL Cholesterol 130 mg/dL 41, 47 Laboratory test 06/06/2014 TSH (Thyroid Stimulating 2.39 IU/mL 0.34-5.60 41, 48 finding Horm) Laboratory test 11/05/2013 t-Transglutaminase IgA <2 U/mL 0-3 49 finding Iga Subclasses, Rid 11/05/2013 Immunoglobulin A 410 mg/dL 91-414 IgA1 291.0 mg/dL 73.2-301.2 IgA2 89.6 mg/dL 13.4-97.9 Laboratory test finding 11/05/2013 Thyroid Stim Hormone 4.95 uIU/mL High 0.49-4.67 Free T4 1.08 ng/dL 0.71-1.85 Liver Function Tests 11/05/2013 Total Protein 7.6 g/dL 6.3-8.0 Albumin 4.3 g/dL 3.5-5.0 Globulin 3.3 g/dL 1.9-4.3 Alb/Glob 1.3 ratio Bilirubin,Total 0.4 mg/dL 0.2-1.2 Bilirubin,Direct 0.2 mg/dL 0.1-0.4 Bilirubin,Indirect 0.2 mg/dL 0.0-0.9 Sgot/Ast 16 U/L 16-40 SGPT/Alt 60 U/L 30-65 Alkaline Phosphatase 60 U/L 50-136 LDL Cholesterol Profile 11/05/2013 Cholesterol 193 mg/dL 120-200 Triglycerides 144 mg/dL 16-231 HDL Cholesterol 35 mg/dL 29-83 LDL-Cholesterol 129 mg/dL 62-185 Laboratory test 11/05/2013 C-Reactive Protein,Cardiac 2.59 mg/L 0.00- 3.00 50 finding Sedimentation Rate 7 mm/hr 0-15 CBC W/Automated Diff 11/05/2013 White Blood Count 3.8 K/uL 3.4-10.5 Red Blood Count 4.45 M/uL 4.20-5.80 Hemoglobin 14.3 gm/dL 12.8-17.0 Hematocrit 41.9 % 38.0-48.0 Mean Cell Volume 94.2 fl 80.0-96.0 Mean Corpuscular HGB 32.1 pg 27.0-33.0 Mean Corpuscular HGB Conc 34.1 g/dL 31.7-36.0 Platelet Count 202 K/uL 150-400 Red Cell Distri Width SD 44.0 fl 36-51 Red Cell Distri Width %CV 13.3 % 11.6-15.8 Mean Platelet Volume 11.9 fL High 6.6-10.6 Neut# 1.97 K/uL 1.8-7.0 Lymph # 1.35 K/uL 1.2-4.0 Coke # 0.31 K/uL 0.0-0.6 Eos # 0.09 K/uL 0.0-0.5 Baso # 0.03 K/uL Low 0.1-0.2 Basic Metabolic Panel 11/05/2013 Glucose 152 mg/dL High 76-115 BUN 14 mg/dL 5-23 Creatinine 0.9 mg/dL 0.5-1.4 Glom Filtration Rate, Estimate >60 mL/min >60 If >60 mL/min >60 51 BUN/Creat 15.5 ratio Sodium 143 mmol/L 136-145 Potassium 4.1 mmol/L 3.5-5.1 Chloride 108 mmol/L High 98-107 Carbon Dioxide 31 mEq/L High 18-29 Anion Gap 8 mEq/L 8-16 Calcium 9.0 mg/dL 8.5-10.1 Glycohemoglobin A1c 11/05/2013 Glycohemoglobin (A1c) 8.1 % High 4.8-6.0 52 eAG 186 mg/dL Differential WBC Confirm 11/05/2013 Total Cells Counted 100 #CELLS Myelocyte% 2 % High -0 Band% 2 % 0-8 Neutrophils% 56 % 33-73 Lymph% 28 % 17-56 Atypical Lymph% 1 % 0-7 Monocyte% 9 % 0-10 Eosinophil% 2 % 0-5 Platelet Estimate NORMAL RBC Morphology NORMAL Gliadin Igg/Iga Antibodies 11/05/2013 Antigliadin Abs, IgG 7 units 0-19 53 Antigliadin Abs, IgA 2 units 0-19 54 PSA Free And Total 09/21/2013 PSA Total 0.64 ng/mL <=2.5 PSA Free 0.2 ng/mL PSA Free/Total See Comment ratio 55 Laboratory test finding 09/21/2013 Free T4 1.04 ng/mL 0.61-1.24 TSH (Thyroid Stimulating Horm) 3.91 miu/mL 0.34-5.60 Hemoglobin A1c 8.4 % High Less than 6.0 56 Comp Metabolic Panel 09/21/2013 Sodium 137 mmol/L 133-145 Potassium 4.2 mmol/L 3.5-5.0 Chloride 102 mmol/L 101-111 Co2 Carbon Dioxide 30.0 mmol/L 22-32 Anion Gap 5.0 mmol/L 2-11 Glucose 255 mg/dL High 70-100 Blood Urea Nitrogen 17 mg/dL 6-24 Creatinine 1.00 mg/dL 0.50-1.40 BUN/Creatinine Ratio 17.0 8-20 Calcium 9.1 mg/dL 8.1-9.9 Total Protein 6.6 g/dL 6.2-8.1 Albumin 4.3 g/dL 3.6-5.4 Globulin 2.3 g/dL 2-4 Albumin/Globulin Ratio 1.9 1-3 Total Bilirubin 1.1 mg/dL 0.4-1.5 Alkaline Phosphatase 53 U/L 30-110 Alt 33 U/L 14-54 Ast 20 U/L 12-42 Egfr Non- 80.4 >60 Egfr 103.5 >60 57 Laboratory test finding 09/21/2013 Amylase 59 U/L 20-120 Lipase 35 U/L 22-51 Lipid Profile (Trig/Chol/HDL) 09/21/2013 Triglycerides 246 mg/dL High 40- 200 Cholesterol 247 mg/dL High Less than 200 HDL Cholesterol 41 mg/dL 40-60 58 Cholesterol/HDL Ratio 6.0 Average High 1-4.44 LDL Cholesterol 156.8 High Less Than 100 59 Laboratory test finding 09/21/2013 CRP High Sensitivity 2.2 mg/L 60 Erythrocyte Sed Rate 10 mm/Hr 0-14 CBC Auto Diff 09/21/2013 White Blood Count 4.8 10^3/uL 4.8-10.8 Red Blood Count 4.63 10^6/uL 4.0-5.4 Hemoglobin 14.9 g/dL 14.0-18.0 Hematocrit 42 % 42-52 Mean Corpuscular Volume 91 fL 80-94 Mean Corpuscular Hemoglobin 32 pg High 27-31 Mean Corpuscular HGB Conc 35 g/dL 31-36 Red Cell Distribution Width 13 % 10.5-15 Platelet Count 161 10^3/uL 150-450 Mean Platelet Volume 11 um3 High 7.4-10.4 Abs Neutrophils 2.6 10^3/uL 1.5-7.7 Abs Lymphocytes 1.6 10^3/uL 1.0-4.8 Abs Monocytes 0.4 10^3/uL 0-0.8 Abs Eosinophils 0.1 10^3/uL 0-0.6 Abs Basophils 0 10^3/uL 0-0.2 Abs Nucleated RBC 0.01 10^3/uL Granulocyte % 53.9 % 38-83 Lymphocyte % 33.3 % 25-47 Monocyte % 9.1 % High 1-9 Eosinophil % 3.1 % 0-6 Basophil % 0.6 % 0-2 Nucleated Red Blood Cells % 0.1 Basic Metabolic Panel 02/02/2013 Glucose 157 mg/dL High 76-115 BUN 14 mg/dL 5-23 Creatinine 0.9 mg/dL 0.5-1.4 Glom Filtration Rate, Estimate >60 mL/min >60 If >60 mL/min >60 61 BUN/Creat 15.5 ratio Sodium 141 mmol/L 136-145 Potassium 4.0 mmol/L 3.5-5.1 Chloride 105 mmol/L 98-107 Carbon Dioxide 26 mEq/L 18-29 Anion Gap 14 mEq/L 8-16 Calcium 8.8 mg/dL 8.5-10.1 CBC W/Automated Diff 02/02/2013 White Blood Count 3.9 K/uL 3.4-10.5 Red Blood Count 4.65 M/uL 4.20-5.80 Hemoglobin 15.0 gm/dL 12.8-17.0 Hematocrit 42.7 % 38.0-48.0 Mean Cell Volume 91.8 fl 80.0-96.0 Mean Corpuscular HGB 32.3 pg 27.0-33.0 Mean Corpuscular HGB Conc 35.1 g/dL 31.7-36.0 Platelet Count 162 K/uL 150-400 Red Cell Distri Width SD 42.2 fl 36-51 Red Cell Distri Width %CV 12.9 % 11.6-15.8 Mean Platelet Volume 12.6 fL High 6.6-10.6 Neut% 46.5 % 33.0-73.0 Lymph % 39.2 % 17.0-56.0 Coke % 10.4 % High 0.0-10.0 Eo% 3.4 % 0.0-5.0 Bas% 0.5 % 0.1-1.0 Neut# 1.79 K/uL Low 1.8-7.0 Lymph # 1.51 K/uL 1.2-4.0 Coke # 0.40 K/uL 0.0-0.6 Eos # 0.13 K/uL 0.0-0.5 Baso # 0.02 K/uL Low 0.1-0.2 LDL Cholesterol Profile 02/02/2013 Cholesterol 220 mg/dL High 120-200 Triglycerides 163 mg/dL 16-231 HDL Cholesterol 33 mg/dL 29-83 LDL-Cholesterol 154 mg/dL 62-185 Liver Function Tests 02/02/2013 Total Protein 7.4 g/dL 6.3-8.0 Albumin 4.4 g/dL 3.5-5.0 Globulin 3.0 g/dL 1.9-4.3 Alb/Glob 1.5 ratio Bilirubin,Total 0.6 mg/dL 0.2-1.2 Bilirubin,Direct 0.2 mg/dL 0.1-0.4 Bilirubin,Indirect 0.4 mg/dL 0.0-0.9 Sgot/Ast 12 U/L Low 16-40 SGPT/Alt 34 U/L 30-65 Alkaline Phosphatase 75 U/L 50-136 Laboratory test finding 02/02/2013 Thyroid Stim Hormone 3.20 uIU/mL 0.49- 4.67 Free T4 1.08 ng/dL 0.71-1.85 Prostate Specific Antigen 0.53 ng/mL 0.0-4.0 62 Glycohemoglobin A1c 02/02/2013 Glycohemoglobin (A1c) 8.0 % High 4.8-6.0 63 eAG 183 mg/dL Lipid Profile (Trig/Chol/HDL) 06/01/2012 Triglyceride 219 mg/dL High 40- 200 Cholesterol 219 mg/dL High Less Than 200 64 High Density Lipoprotein 31 mg/dL Low 40-60 65 Cholesterol/HDL Ratio 7.06 AVERAGE High 1-4.97 Low Density Lipoprotein 144 mg/dL High Less Than 100 66 Basic Metabolic Panel 06/01/2012 Sodium 137 mmol/L 135-145 Potassium 4.7 mmol/L 3.5-5.0 Chloride 105 mmol/L 101-111 Co2 (Carbon Dioxide) 27.0 mmol/L 22-32 Anion Gap 5.0 mmol/L 2-11 67 Glucose 161 mg/dL High 70-100 BUN 15 mg/dL 6-24 Creatinine 1.0 mg/dL 0.50-1.40 One Over Creatinine 1.00 BUN/Creatinine Ratio 15.0 8-20 Calcium 9.3 mg/dL 8.1-9.9 eGFR Non- 81.2 > 60 eGFR 104.4 > 60 68 Laboratory test finding 06/01/2012 Erythrocyte Sed Rate 13 MM/HR 0-15 Hemoglobin A1c 6.5 % High Less Than 6.0 69 CBC No Diff 06/01/2012 White Blood Count 5.0 CUMM 4.8-10.8 Red Cell Count 4.41 CUMM Low 4.6-6.2 Hemoglobin 14.5 g/dL 14.0-18.0 Hematocrit 41 % Low 42-52 Mean Corpuscular Volume 94 um3 80-94 Mean Corpuscular Hemoglob 33 pg High 27-31 Mean Corpuscular HGB Cone 35 g/dL 32-36 Redcell Distribution WDTH 12 % 10.5-15 Platelet Count 148 CUMM Low 150-450 Mean Platelet Volume 10.9 um3 High 7.4-10.4 Laboratory test finding 06/01/2012 Thyroxine Free 0.97 ng/dL 0.61-1.24 TSH 2.37 MIU/ML 0.34-5.60 C Reactive Protein 0.5 mg/dL Less Than 0.5 Liver Function Panel 06/01/2012 Total Protein 7.0 GM/DL 6.2-8.1 Albumin 4.2 GM/DL 3.6-5.4 Globulin 2.8 GM/DL 2-4 Albumin/Globulin Ratio 1.5 1-3 Bilirubin Total 1.1 mg/dL 0.4-1.5 70 Bilirubin Direct 0.1 mg/dL 0.1-0.5 Indirect Bilirubin 1.0 mg/dL 0.3-1.0 71 Alkaline Phosphatase 51 U/L 39-117 Alt (SGPT) 32 U/L 17-63 Ast (Sgot) 21 U/L 12-42 1 Because ethnic data is not always readily available, this report includes an eGFR for both -Americans and non- Americans. The National Kidney Disease Education Program (NKDEP) does not endorse the use of the MDRD equation for patients that are not between the ages of 18 and 70, are , have extremes of body size, muscle mass, or nutritional status, or are non- or non-. According to the National Kidney Foundation, irrespective of diagnosis, the stage of the disease is based on the level of kidney function: Stage Description GFR(mL/min/1.73 m(2)) 1 Kidney damage with normal or decreased GFR 90 2 Kidney damage with mild decrease in GFR 60-89 3 Moderate decrease in GFR 30-59 4 Severe decrease in GFR 15-29 5 Kidney failure <15 (or dialysis) 2 Desirable: <150 Borderline High: 150-199 High: 200-499 Very High: >500 3 Desirable: <200 Borderline High: 200-239 High: >239 4 Low: <40 Desirable: 40-60 High: >60 5 Desirable: <100 Near Optimal: 100-129 Borderline High: 130-159 High: 160-189 Very High: >189 6 Therapeutic target for the treatment of diabetes mellitus patients is <7% HBA1C, and in selective patients <6.0%. Please refer to [place] [employer] Association diabetic care guidelines for further information. 7 [id number] Comment: left ant leg abscess 8 SEE RESULT BELOW Name: CAL RICHMOND : [address]: Liz German MD Acct: [id number] Unit: [id number] AGE: 51 Location: [facility] Re12/12/16 SEX: M Status: DEP ER SPEC: [id number] WAN: 12/12/16-[address] [facility] [address]: Liz Geramn MD REQ: [id number] RECD: 12/13/16 STATUS: [facility]UAN MANUEL [facility] DR: Sofia Jiménez MD _ SOURCE: LEG,LEFT SPDESC: ORDERED: MRSA/SA SSTI, Culture Stain COMMENTS: [id number] Comment: left ant leg abscess Procedure Result Reported Site MRSA/S. aureus SSTI PCR PENDING Wound/Misc Gram Stain Final 12/13/16- 1352 ML 3+ Neutrophils 1+ Epithelial Cells 3+ Gram Positive Cocci Intracellular Wound/Misc Culture PENDING * ML - MAIN LAB ([facility]) . END OF REPORT * ML=Testing performed at Main Lab DEPARTMENT OF PATHOLOGY, [address] [place] [address] Lalo Stephenson M.D. Director [facility] # [id number] 9 SEE RESULT BELOW Name: CAL RICHMOND : [address]: Liz German MD Acct: [id number] Unit: [id number] AGE: 51 Location: [facility] Re12/12/16 SEX: M Status: DEP ER SPEC: [id number] WAN: 12/12/16-[address]: Liz German MD REQ: [id number] RECD: 12/13/16 STATUS: JOELLEN MABRY DR: Sofia Jiménez MD _ SOURCE: LEG,LEFT SPDESC: ORDERED: MRSA/SA SSTI, Culture Stain COMMENTS: [id number] Verbal to [id number] by [id number] at 1531 on 12/13/16. Results read back accurately. Comment: left ant leg abscess Procedure Result Reported Site MRSA/S. aureus SSTI PCR Final 12/13/16- 1503 ML Organism 1 MRSA NEGATIVE Organism 2 S.AUREUS POSITIVE Wound/Misc Gram Stain Final 12/13/16- 1352 ML 3+ Neutrophils 1+ Epithelial Cells 3+ Gram Positive Cocci Intracellular Wound/Misc Culture Final 12/15/16- 807 ML Organism 1 STAPHYLOCOCCUS AUREUS Quantity 3+ 1. STAPHYLOCOCCUS AUREUS M.I.C. RX --------- ------ Penicillin >=0.5 R Clindamycin <=0.25 S Erythromycin <=0.25 S Gentamicin <=0.5 S Linezolid 2 S Nitrofurantoin <=16 S Oxacillin 0.5 S CONTINUED ON NEXT PAGE * ML=Testing performed at Main Lab DEPARTMENT OF PATHOLOGY, [address] [place] [address] Lalo Stephenson M.D. Director [facility] # [id number] Patient: CAL RICHMOND [id number] (Continued) Specimen: [id number] Collected: 12/12/16-1526 Received: 12/13/16 (Continued) Procedure Result Reported Site Wound/Misc Culture Final (continued) 12/15/16807 1. STAPHYLOCOCCUS AUREUS (continued) M.I.C. RX --------- ------ * Quinupristin/Dalfopristin 0.5 S Rifampin <=0.5 S Tetracycline <=1 S Doxycycline - Deduced S * Minocycline - Deduced S Trimethoprim/Sulfamethoxazole <=10 S Vancomycin <=0.5 S Imipenem-Deduced S * Ampicillin/Sulbactam-Deduced S Cefazolin-Deduced S * These antibiotics are not available in the [facility] Formulary Contact the Microbiology Department for any additional antibiotic reporting. * ML - MAIN LAB ([facility]) . END OF REPORT * ML=Testing performed at Main Lab DEPARTMENT OF PATHOLOGY, [address] [place] [address] Lalo Stephenson M.D. Director [facility] # [id number] 10 Because ethnic data is not always readily available, this report includes an eGFR for both -Americans and non- Americans. The National Kidney Disease Education Program (NKDEP) does not endorse the use of the MDRD equation for patients that are not between the ages of 18 and 70, are , have extremes of body size, muscle mass, or nutritional status, or are non- or non-. According to the National Kidney Foundation, irrespective of diagnosis, the stage of the disease is based on the level of kidney function: Stage Description GFR(mL/min/1.73 m(2)) 1 Kidney damage with normal or decreased GFR 90 2 Kidney damage with mild decrease in GFR 60-89 3 Moderate decrease in GFR 30-59 4 Severe decrease in GFR 15-29 5 Kidney failure <15 (or dialysis) 11 Therapeutic target for the treatment of diabetes Mellitus patients is <7% HBA1C, and in selective patients <6.0%.Please refer to [place] Diabetes Association Diabetic care guidelines for further information. 12 Unable to calculate due to low microalbumin 13 Desirable: <100 mg/dL Near Optimal: 100-129 mg/dL Borderline High: 130-159 mg/dL High: 160-189 mg/dL Very High: >189 mg/dL 14 Marketing Communications Assistant: [id number] SALUD HERRING 15 PT IS FASTING 16 Because ethnic data is not always readily available, this report includes an eGFR for both -Americans and non- Americans. The National Kidney Disease Education Program (NKDEP) does not endorse the use of the MDRD equation for patients that are not between the ages of 18 and 70, are , have extremes of body size, muscle mass, or nutritional status, or are non- or non-. According to the National Kidney Foundation, irrespective of diagnosis, the stage of the disease is based on the level of kidney function: Stage Description GFR(mL/min/1.73 m(2)) 1 Kidney damage with normal or decreased GFR 90 2 Kidney damage with mild decrease in GFR 60-89 3 Moderate decrease in GFR 30-59 4 Severe decrease in GFR 15-29 5 Kidney failure <15 (or dialysis) 17 Low risk: <1.00 Average risk: 1.00-3.00 High risk: >3.00 18 Desirable <150 Borderline high 150-199 High 200-499 Very High >500 19 Desirable <200 Borderline high 200-239 High >239 20 Low <40 Desirable: 40-60 High: >60 21 Desirable: <100 mg/dL Near Optimal: 100-129 mg/dL Borderline High: 130-159 mg/dL High: 160-189 mg/dL Very High: >189 mg/dL 22 Therapeutic target for the treatment of diabetes Mellitus patients is <7% HBA1C, and in selective patients <6.0%.Please refer to [place] Diabetes Association Diabetic care guidelines for further information. 23 PT IS FASTING 24 Unable to calculate due to low microalbumin 25 PT IS FASTING 26 PT IS FASTING 27 PT IS FASTING 28 FASTING 29 FASTING 30 FASTING 31 Serum levels of PSA measured using the [employer] DXI Hybritech immunoassay should not be interpreted as absolute evidence of the presence or absence of disease. The PSA value should be used in conjunction with other pertinent clinical diagnostic procedures. A PSA value in the range of 0.1 to 0.6 ng/ml is indeterminate if being used as an indicator of recurrent or residual disease. The values obtained with different assay methods or kits cannot be used interchangeably. 32 FASTING 33 Desirable <150 Borderline high 150-199 High 200-499 Very High >500 34 Desirable <200 Borderline high 200-239 High >239 35 Low <40 Desirable: 40-60 High: >60 36 Desirable: <100 mg/dL Near Optimal: 100-129 mg/dL Borderline High: 130-159 mg/dL High: 160-189 mg/dL Very High: >189 mg/dL 37 Low risk: <1.00 Average risk: 1.00-3.00 High risk: >3.00 38 Therapeutic target for the treatment of diabetes Mellitus patients is <7% HBA1C, and in selective patients <6.0%.Please refer to [place] [employer] Association Diabetic care guidelines for further information. 39 Because ethnic data is not always readily available, this report includes an eGFR for both -Americans and non- Americans. The National Kidney Disease Education Program (NKDEP) does not endorse the use of the MDRD equation for patients that are not between the ages of 18 and 70, are , have extremes of body size, muscle mass, or nutritional status, or are non- or non-. According to the National Kidney Foundation, irrespective of diagnosis, the stage of the disease is based on the level of kidney function: Stage Description GFR(mL/min/1.73 m(2)) 1 Kidney damage with normal or decreased GFR 90 2 Kidney damage with mild decrease in GFR 60-89 3 Moderate decrease in GFR 30-59 4 Severe decrease in GFR 15-29 5 Kidney failure <15 (or dialysis) 40 SEE RESULT BELOW Name: CAL RICHMOND : [address]: Nolvia England MD Acct: [id number] Unit: [id number] AGE: 49 Location: [facility] Re04/14/15 SEX: M Status: DEP ER SPEC: [id number] WAN: 04/14/15-[address] [facility] [address]: Nolvia England MD REQ: [id number] RECD: 04/15/15 STATUS: JOELLEN MABRY DR: Sofia Jiménez MD [facility] Adele BROWNP _ SOURCE: THROAT SPDESC: ORDERED: Throat Beta Str Procedure Result Verified Site Throat Beta Strep Culture Final 04/17/15- 816 ML Negative For Group A Beta Streptococcus * ML - MAIN LAB ([facility]) . END OF REPORT * ML=Testing performed at Main Lab DEPARTMENT OF PATHOLOGY, [address] [place] [address] Lalo Stephenson M.D. Director [facility] # [id number] 41 FASTING 42 Because ethnic data is not always readily available, this report includes an eGFR for both -Americans and non- Americans. The National Kidney Disease Education Program (NKDEP) does not endorse the use of the MDRD equation for patients that are not between the ages of 18 and 70, are , have extremes of body size, muscle mass, or nutritional status, or are non- or non-. According to the National Kidney Foundation, irrespective of diagnosis, the stage of the disease is based on the level of kidney function: Stage Description GFR(mL/min/1.73 m(2)) 1 Kidney damage with normal or decreased GFR 90 2 Kidney damage with mild decrease in GFR 60-89 3 Moderate decrease in GFR 30-59 4 Severe decrease in GFR 15-29 5 Kidney failure <15 (or dialysis) 43 Therapeutic target for the treatment of diabetes Mellitus patients is <7% HBA1C, and in selective patients <6.0%.Please refer to [place] Diabetes Association Diabetic care guidelines for further information. 44 Desirable <150 Borderline high 150-199 High 200-499 Very High >500 45 Desirable <200 Borderline high 200-239 High >239 46 Low <40 Desirable: 40-60 High: >60 47 Desirable <100 Near Optimal 100-129 Borderline high 130-159 High 160-189 Very High >189 48 FASTING 49 Negative 0 - 3 Weak Positive 4 - 10 Positive >10 Tissue Transglutaminase (tTG) has been identified as the endomysial antigen. Studies have demonstr- ated that endomysial IgA antibodies have over 99% specificity for gluten sensitive enteropathy. Performed at: - [facility] [address] [id number] [employer]: Yelitza Clay MD, Phone: [phone] Performed at: - [facility] [id number] [employer]: Rohit Rodriguez MD, Phone: [phone] 50 Relative Risk for Future Cardiovascular Event Low <1.00 Average 1.00 - 3.00 High >3.00 51 Note: Persistent reduction for 3 months or more in an eGFR <60 mL/min/1.73 m2 defines CKD. Patients with eGFR values >/=60 mL/min/1.73 m2 may also have CKD if evidence of persistent proteinuria is present. The original MDRD equation for estimated GFR is not valid for patients less than 18 years of age. Additional information may be found at www.kdoqi.org. 52 A1c value between 5.7% and 6.4% is considered at increased risk for diabetes. A1c value greater than 6.5 % is considered essentially diagnostic for Type II diabetes. Current guidelines recommend a treatment goal of <7% for diabetic patients. This method will measure glycosylated hemoglobin variants, HbS, HbG, HbH, HbWayne, HbC, HbE, etc. Other hemoglobin- opathies may give incorrect results with this test. 53 Negative 0 - 19 Weak Positive 20 - 30 Moderate to Strong Positive >30 54 Negative 0 - 19 Weak Positive 20 - 30 Moderate to Strong Positive >30 55 Ratio not calculated because clinical usefulness is not defined except in range of total PSA 4.0-10.0 ng/mL. The testing method is an electrochemiluminescence assay manufactured by [employer] and performed on the Modular or Staci system. Values obtained with different assay methods or kits may be different and cannot be used interchangeably. Test results cannot be interpreted as absolute evidence for the presence or absence of malignant disease. Test Performed by: [address] [address] [place]: Donato Owens III, M.D. 56 Therapeutic target for the treatment of diabetes Mellitus patients is <7% HBA1C, and in selective patients <6.0%.Please refer to [place] Diabetes Association Diabetic care guidelines for further information. 57 Because ethnic data is not always readily available, this report includes an eGFR for both -Americans and non- Americans. The National Kidney Disease Education Program (NKDEP) does not endorse the use of the MDRD equation for patients that are not between the ages of 18 and 70, are , have extremes of body size, muscle mass, or nutritional status, or are non- or non-. According to the National Kidney Foundation, irrespective of diagnosis, the stage of the disease is based on the level of kidney function: Stage Description GFR(mL/min/1.73 m(2)) 1 Kidney damage with normal or decreased GFR 90 2 Kidney damage with mild decrease in GFR 60-89 3 Moderate decrease in GFR 30-59 4 Severe decrease in GFR 15-29 5 Kidney failure <15 (or dialysis) 58 HDL Interpretation: Undesirable: High Risk: Less than 40 mg/dL Desirable: Low Risk: Greater than 60 mg/dL 59 LDL Interpretation: Low Risk Optimal Level: LDL Less than 100 mg/dL Near or Above Optimal: LDL 100-129 mg/dL Borderline High Risk: LDL 130-159 mg/dL High Risk: LDL 160-189 mg/dL Very High Risk: LDL Greater than 189 mg/dL 60 Less Than 1.0......Low Risk of Cardiovascular Disease 1.0-3.0............Medium Risk (<2 Fold Increase) Greater Than 3.0...High Risk (Approximately 2-Fold Increase) 61 Note: Persistent reduction for 3 months or more in an eGFR <60 mL/min/1.73 m2 defines CKD. Patients with eGFR values >/=60 mL/min/1.73 m2 may also have CKD if evidence of persistent proteinuria is present. The original MDRD equation for estimated GFR is not valid for patients less than 18 years of age. Additional information may be found at www.kdoqi.org. 62 THIS ASSAY IS NOT INTENDED A CANCER SCREENING TEST The concentration of PSA in a given specimen, determined with assays from different manufacturers, can vary due to differences in assay methods and reagent specificity. Values obtained from different assay methods cannot be used interchangeably. 63 A1c value between 5.7% and 6.4% is considered at increased risk for diabetes. A1c value greater than 6.5 % is considered essentially diagnostic for Type II diabetes. Current guidelines recommend a treatment goal of <7% for diabetic patients. This method will measure glycosylated hemoglobin variants, HbS, HbG, HbH, HbWayne, HbC, HbE, etc. Other hemoglobin- opathies may give incorrect results with this test. 64 CHOLESTEROL INTERPRETATION: Desirable: Less than 200 MG/DL Borderline-High Risk: 200-239 MG/DL High-Risk: 240 MG/DL and over 65 HDL INTERPRETATION: Undesirable: High Risk: Less than 40 MG/DL Desirable: Low Risk: Greater than 60 MG/DL 66 LDL INTERPRETATION: Low Risk Optimal Level: LDL Less than 100 MG/DL Near or Above Optimal: LDL 100-129 MG/DL Borderline High Risk: LDL 130-159 MG/DL High Risk: LDL 160-189 MG/DL Very High Risk: LDL Greater than 189 MG/DL 67 Anion gap measurement may be of limited value in the presence of any alkalosis, especially in a combined acid base disorder. . 68 Because ethnic data is not always readily available, this report includes an eGFR for both -Americans and non- Americans. The National Kidney Disease Education Program (NKDEP) does not endorse the use of the MDRD equation for patients that are not between the ages of 18 and 70, are , have extremes of body size, muscle mass, or nutritional status, or are non- or non-. According to the National Kidney Foundation, irrespective of diagnosis, the stage of the disease is based on the level of kidney function: Stage Description GFR(mL/min/1.73 m(2)) 1 Kidney damage with normal or decreased GFR 90 2 Kidney damage with mild decrease in GFR 60-89 3 Moderate decrease in GFR 30-59 4 Severe decrease in GFR 15-29 5 Kidney failure <15 (or dialysis) 69 THERAPEUTIC TARGET FOR THE TREATMENT OF DIABETES MELLITUS PATIENTS IS <7% HBA1C, AND IN SELECTIVE PATIENTS <6.0%. PLEASE REFER TO [place] [employer] DIABETIC CARE GUIDELINES FOR FURTHER INFORMATION. 70 A metabolite of Naproxen, O-desmethylnaproxen, has been shown to interfere with the Jendrassik-Asbury method for measuring total bilirubin. Samples from patients who have taken Naproxen have shown spurious elevation in total bilirubin levels. 71 Please note updated reference range, effective 04/02/10 Procedures Date CPT Code Description Status 12/15/2017 41651 I & D Abscess Simple/Single Incl. Completed Furuncle/Carbuncle/Cyst 10/14/2017 18477 Spirometry Completed 10/14/2017 66719 Tympanometry Completed 12/03/2016 85634 EKG Completed 06/25/2016 09568 Spirometry Completed 06/25/2016 31484 Tympanometry Completed 08/19/2014 51126 Spirometry Completed 08/19/2014 98643 Tympanometry Completed 01/02/2014 98606 Spirometry Completed 01/02/2014 54773 Tympanometry Completed 08/24/2013 22420 Visual Screening Test Completed 08/24/2013 24777 Diagnostic Bekesy Audiometry Completed 11/12/2008 87055 Tympanometry Completed 08/29/2008 94817 EKG Completed 05/31/2006 41813 EKG Completed 09/12/2003 Colonoscopy Completed Encounters Type Date Location Provider CPT E/M Dx Office Visit 12/15/2017 2:00p [facility] Sofia Jiménez M.D. 43166 E11.65 E78.2 I10 E03.9 F41.9 R53.81 J30.2 E55.9 L20.9 E66.9 F17.220 Z80.42 N52.9 D37.09 R91.8 L03.012 Office Visit 11/04/2017 11:45a [facility] Sofia Jiménez M.D. 19996 E11.65 E78.2 I10 E03.9 F41.9 R53.81 J30.2 E55.9 L20.9 E66.9 F17.220 Z80.42 J20.9 J01.40 H66.93 R06.02 R05 R09.81 N52.9 D37.09 Office Visit 10/14/2017 3:30p [facility] Sofia Jiménez M.D. 53748 E11.65 E78.2 I10 E03.9 F41.9 R53.81 J30.2 E55.9 L20.9 E66.9 F17.220 Z80.42 J20.9 J01.40 H66.93 R06.02 R05 R09.81 K02.9 N52.9 Office Visit 08/26/2017 4:00p [facility] Sofia Jiménez M.D. 45605 E11.65 E78.2 I10 E03.9 F41.9 R53.81 J30.2 E55.9 L20.9 E66.9 F17.220 Z80.42 Office Visit 05/03/2017 2:00p [facility] Sofia Jiménez M.D. 18052 E11.65 E78.2 I10 E03.9 F41.9 R53.81 J30.2 E55.9 L20.9 E66.01 J20.9 J01.40 H66.93 R06.02 R05 R09.81 Office Visit 02/18/2017 1:45p [facility] Sofia Jiménez M.D. 99725 E11.65 E78.2 I10 E03.9 F41.9 R53.81 J30.2 E55.9 L20.9 E66.01 A09 R10.84 R19.7 R11.0 Office Visit 12/03/2016 3:30p [facility] Sofia Jiménez M.D. 61933 E11.65 E78.2 I10 E03.9 F41.9 R53.81 J30.2 E55.9 L20.9 E66.01 Z00.01 Z68.34 Office Visit 10/06/2016 3:15p [facility] Cal Torres [facility] 26332 J01.40 R05 R09.81 R53.83 R50.9 Office Visit 06/25/2016 1:30p [facility] Sofia Jiménez M.D. 52519 J20.9 J01.40 R06.02 R05 R09.81 E11.65 E78.2 I10 E03.9 F41.9 R53.81 J30.2 E55.9 L20.9 J02.9 Office Visit 03/16/2016 3:45p [facility] Sofia Jiménez M.D. 96011 J20.9 J01.40 R06.02 R05 R09.81 E11.65 E78.2 I10 E03.9 F41.9 R53.81 J30.2 E55.9 L20.9 Office Visit 11/07/2015 4:15p [facility] Sofia Jiménez M.D. 82104 E11.65 E78.2 I10 E03.9 F41.9 R53.81 J30.2 E55.9 L20.9 Office Visit 07/11/2015 3:15p [facility] Sofia Jiménez M.D. 08964 Z23 J30.2 E11.65 E78.2 I10 E03.9 F41.9 R53.81 B35.6 Office Visit 12/25/2014 3:45p [facility] Sofia Jiménez M.D. 18318 477.8 250.02 272.2 401.1 244.9 300.00 780.79 Office Visit 08/19/2014 2:00p [facility] Sofia Jiménez M.D. 69201 466.0 461.8 382.9 786.2 478.19 786.05 780.79 477.8 250.02 272.2 401.1 244.9 300.00 Office Visit 06/07/2014 11:45a [facility] Sofia Jiménez M.D. 31700 477.8 250.02 272.2 401.1 244.9 300.00 789.07 564.00 278.02 V85.31 V04.81 Office Visit 03/12/2014 4:00p [facility] Sofia Jiménez M.D. 02298 477.8 250.02 272.2 401.1 244.9 300.00 789.07 564.00 278.02 V85.31 Office Visit 01/02/2014 11:45a [facility] Diana Brannon [facility] 14827 465.9 462 388.70 786.2 780.79 478.19 Office Visit 11/15/2013 4:30p [facility] Diana Brannon [facility] 53764 477.8 250.02 272.2 401.1 244.9 780.79 300.00 789.07 564.00 278.02 110.3 V85.31 Office Visit 11/05/2013 11:15a [facility] Diana Brannon [facility] 46453 477.8 250.02 272.2 401.1 244.9 780.79 300.00 789.07 564.00 278.02 110.3 V85.31 Office Visit 08/24/2013 1:30p [facility] Diana Brannon [facility] 79779 V70.0 477.8 250.02 272.2 401.1 244.9 780.79 300.00 789.07 564.00 278.02 V85.32 110.3 Office Visit 02/02/2013 8:45a [facility] Sofia Jiménez M.D. 62289 477.8 250.02 272.2 401.1 244.9 780.79 300.00 789.07 564.00 784.7 278.02 V85.32 Office Visit 06/16/2012 9:45a [facility] Sofia Jiménez M.D. 38173 250.02 272.2 401.1 244.9 780.79 300.00 Office Visit 03/23/2012 9:00a [facility] Sofia Jiménez M.D. 04441 250.02 272.2 401.1 244.9 Office Visit 11/11/2011 4:00p [facility] Sofia Jiménez M.D. 91642 401.1 250.02 272.2 244.9 Office Visit 10/22/2011 9:45a [facility] Sofia Jiménez M.D. 82060 401.1 250.02 272.2 789.07 Office Visit 08/20/2011 4:15p [facility] Cal Torres [facility] 37073 401.1 250.00 276.9 272.2 Office Visit 2011 2:00p [facility] Cal Torres [facility] 42146 401.1 250.00 244.9 Office Visit 01/22/2011 9:15a [facility] Sofia Jiménez M.D. 35131 401.1 250.02 272.2 244.9 Office Visit 07/03/2010 9:00a [facility] Sofia Jiménez M.D. 22535 250.02 272.2 780.79 300.00 V04.81 Office Visit 02/13/2010 11:15a [facility] Sofia Jiménez M.D. 63456 250.02 244.9 782.3 682.4 V06.5 Office Visit 11/24/2009 2:00p [facility] Sofia Jiménez M.D. 66871 250.00 244.9 Office Visit 07/04/2009 9:00a [facility] Sofia Jiménez M.D. 45799 250.02 272.2 244.9 356.4 Office Visit 03/07/2009 9:00a [facility] Sofia Jiménez M.D. 55349 Plan of Care 12/15/2017 - Sofia Jiménez M.D.E11.65 Type 2 diabetes mellitus with hyperglycemiaComments:DIET REVIEWED CONTINUE DIETWT LOSSF/U LAB FS qAC AND HS PRN F/U FBWE78.2 Mixed hyperlipidemiaComments:DIET REVIEWED CONTINUE DIETWT LOSSF/U LAB FBWI10 Essential (primary) hypertensionComments:CHECK BP TIW ( PRN)F /U LABDIET AND FLUID COUNSELING LOW SODIUM DIETWT LOSSF/U LABE03.9 Hypothyroidism, unspecifiedComments:RX REVIEWED AND UPDATEDF/U TSH/ FT4F41.9 Anxiety disorder, unspecifiedComments:COUNCELLING AND REASSURANCE RELAXATION TECHNIQUES DISCUSSEDCOUNSELED RE: STRESSORS IN LIFE AVOID ALLENERGY/HIGH CAFFEINE RFTDOJN26.81 Other malaiseComments:INCRFEASE PO FLUIDCOUNCELLING AND REASSURANCE RESTJ30.2 Other seasonal allergic rhinitisComments:INCREASE PO FLUID USE ANTIHISTAMINE PRN SECOND HAND SMOKING ONZMYLBFBL77.9 Vitamin D deficiency, unspecifiedComments:INCREASE EXPOSURE TO SUNREVIEW OF DIETL20.9 Atopic dermatitis, unspecifiedComments:SKIN CARE INSTRUCTIONS LOTION OR BABY OIL 2-3 APPLICATION PER DAYUSE MOISTURIZING SOAPAVOID PROLONGED WATER EXPOSUREAVOID USING HOT WATER IN TPXWGJC55.9 Obesity, unspecifiedComments:WT LOSS COUNCELLINGEXERCISEDIET TZLQCRNCGPKI88.220 Nicotine dependence, chewing tobacco, uncomplicatedComments:TOBACO CHEWING CESSATION TWKKRFWTPIWP82.42 Family history of malignant neoplasm of prostateComments:F/U PSAN52.9 Male erectile dysfunction, unspecifiedComments:COUNCELLING AND TEACHING ON DIFEEERENT TREATMENT OGCHVJWB94.09 Neoplasm of uncertain behavior of sites of the oral cavityComments:OBSERVESEEN BY DENTAL AND ENT AND TOLD ALL IS OKR91.8 Other nonspecific abnormal finding of lung fieldComments:F/U CHEST CT IN 2 FOANQVV36.012 Cellulitis of left fingerNew Medication:Cephalexin 250 mg/ 5MLComments:WOUND CARE
--- OUTSIDE RECORDS SUMMARY | 2017-12-27 07:58 | XMS REPORT ---
:1965 External Reference #:[id number] Author Organization [facility] Address [address] [place] [address] Phone [phone] Care Team Providers Name Role Phone Sofia Jiménez M.D. Care Team Information Rivet Passer Unavailable Sofia Jiménez M.D. Primary Care Physician Unavailable Payers Type Date Identification Numbers Payment Provider Subscriber Commercial Effective: Policy Number: [facility] Silvia Jeff 2006 [id number] [facility] PayID: [id number] 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 [employer] Cigarette Use Former Cigarette Smoker 1 Pack Daily Cigarette Use for 10 yrs Cigars Never Smoked Cigars Pipe Never Smoked A Pipe Smokeless Tobacco Current Tobacco Chewer Smokeless Tobacco 1 can a day, for 10 yrs ETOH Use Currently occasionally consumes alcohol Smoking Patient is a former smoker Allergies, Adverse Reactions, Alerts Date Description Reaction Status Severity Comments 01/10/2014 NKDA active Medications Medication Date Status Form Strength Qnty SIG Indications Ordering Provider Aspirin 0000/ Active 325mg once daily Virgilio, 0000 Sharifa DO Ibuprofen 0000/ Active 200mg as needed Virgilio, 0000 Sharifa DO Levothyroxine / Active 100mcg once daily Virgilio, Sodium 0000 Sharifa DO Lisinopril / Active 20mg once daily Virgilio, 0000 Sharifa DO Day Time 00/ Active as needed Self Multi-Symptom 0000 Cold/Flu Relief Actos / Active Virgilio, 0000 Sharifa DO Clotrimazole 01/10/ Hx Lozenges 10mg 50uni 1 lozenge 5 Ernie 2013 - ts times a day David Barber, 2017 Diflucan 01/10/ Hx Tablets 100mg 8tabs take 2 by Ernie 2013 - mouth day David Barber, , then 1 2017 daily thereafter Clindamycin 01/10/ Hx Suspension 75mg/5 ML 800ml 300 mg (20 Ernie 2013 - ml) by David Barber, mouth four MD 2017 times a day for 10 days Lortab 01/10/ Hx Elixir 10-300mg/ 450ml 1 Ernie 2013 - 15ML tablespoon David Barber, (15 ml) by 2017 mouth every 6 hours as needed for pain Pioglitazone 00/ Hx as directed Virgilio, HCL 0000 - Shairfa 2017 Tylenol With / Hx Unknown Codeine #3 0000 - 2017 Vital Signs Date Vital Result Comment 11/30/2017 Weight 245.00 lb Weight in kg's 111.132 Height 72 inches 6'0" Height in cm's 182.9 cm BMI (Body Mass Index) 33.2 kg/m2 01/31/2014 BP Systolic 141 mmHg BP Diastolic 90 mmHg Heart Rate 78 /min Respiratory Rate 16 /min Weight 242.00 lb Weight in kg's 109.771 Height 72 inches 6'0" Height in cm's 182.9 cm BMI (Body Mass Index) 32.8 kg/m2 01/17/2014 BP Systolic 130 mmHg BP Diastolic 91 mmHg Heart Rate 75 /min Respiratory Rate 16 /min Weight 242.00 lb Weight in kg's 109.771 Height 72 inches 6'0" Height in cm's 182.9 cm BMI (Body Mass Index) 32.8 kg/m2 01/10/2014 BP Systolic 152 mmHg BP Diastolic 102 mmHg Heart Rate 84 /min Respiratory Rate 16 /min Weight 242.00 lb Weight in kg's 109.771 Height 72 inches 6'0" Height in cm's 182.9 cm BMI (Body Mass Index) 32.8 kg/m2 Results Test Date Test Result H/L Range Note Creatinine 11/22/2017 Creatinine 0.97 mg/dL 0.67-1.17 Egfr Non- 81.9 >60 Egfr 105.4 >60 1 Laboratory test finding 11/22/2017 Blood Urea Nitrogen BUN 19 mg/dL 6-24 1 Because ethnic data is not always [...] 15-29 5 Kidney failure <15 (or dialysis) Procedures Date CPT Code Description Status 01/17/2014 27543 Fiberoptic Laryngoscopy Completed 01/10/2014 70841 Fiberoptic Laryngoscopy Completed Encounters Type Date Location Provider CPT E/M Dx Office Visit 11/30/2017 3:45p [place] 09/12/07 Emerson Gibson 04441 R22.1 MYas I31.3 Office Visit 11/18/2017 10:00a [place] 09/12/07 Emerson Gibson 40586 R22.1 Allie.DZac Office Visit 01/31/2014 11:15a [place] 09/12/07 [place] [address] 464.30 Office Visit 01/10/2014 11:15a [place]After 09/12/07 [place] [address] 464.30 Plan of Care 11/30/2017 - Emerson Gibson M.D.R22.1 Localized swelling, mass and lump, neckComments:the patient returned today after his neck CT scan. This was normal and I think he might be feeling his masseter muscle tensing up. However, an incidental finding was found with a fluid collection near his pulmonary artery. I have spoken to both Dr. Daniel, and then Dr. Head. Dr. Head recommended an echocardiogram and asked that I order it.I31.3 Pericardial effusion (noninflammatory)
[2017-12-27] MEDS ORDERED: Ketorolac INJ* 60 MG/2 ML VIAL IM ONE (08:25)
[2017-12-27 10:08] VITALS: BP 144/86
--- NOTE | 2017-12-27 10:16 | UC ---
Lower Extremity/Ankle HPI - HPI Summary HPI Summary: Patient presents with 5 days of right hip pain with radiation down his leg. Patient denies any injury. No abnormal physical activity recently. 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 States the pain is the worst when he is getting up or down from a sitting position or standing position. Denies numbness or tingling. - History of Current Complaint Chief Complaint: UCLowerExtremity Stated Complaint: HIP PAIN Time Seen by Provider: 12/27/17 09:50 Hx Obtained From: Patient Onset/Duration: Gradual Onset, Lasting Days, Still Present Severity Initially: Moderate Severity Currently: Moderate Pain Intensity: 5 Pain Scale Used: 0-10 Numeric Aggravating Factor(s): Standing Alleviating Factor(s): Rest Able to Bear Weight: Yes - Allergies/Home Medications Allergies/Adverse Reactions: Allergies Allergy/AdvReac Type Severity Reaction Status Date / Time No Known Allergies Allergy Verified 12/27/17 08:14 Home Medications: Home Medications Acetaminophen [Tylenol Extra Strength] 2 tab PO BID PRN 12/27/17 [History Confirmed 12/27/17] Ibuprofen 1 tab PO BID PRN 12/27/17 [History Confirmed 12/27/17] PMH/Surg Hx/FS Hx/Imm Hx Endocrine History: Diabetes, Hypothyroidism Cardiovascular History: Hypertension Other Cancer History: TESTICULAR CANCER - Surgical History Surgical History: Yes Surgery Procedure, Year, and Place: Testicular Cancer Testicle removed 33 years ago with chemo. Exploratory abdominal surgery, toe-nail surgery. Knee arthroscopy, benign lump biopsies on chest. - Family History Known Family History: Positive: Other - prostate CA Negative: Diabetes, Blood Disorder - Social History Alcohol Use: Occasionally Substance Use Type: None Smoking Status (MU): Heavy Every Day Tobacco Smoker Type: Smokeless Tobacco Amount Used/How Often: 1 can/day Length of Time of Smoking/Using Tobacco: 10 years Have You Smoked in the Last Year: No When Did the Patient Quit Smoking/Using Tobacco: 20 YEARS AGO - Immunization History Most Recent Influenza Vaccination: 2016 Most Recent Tetanus Shot: UNSURE Review of Systems Constitutional: Negative Skin: Negative Respiratory: Negative Cardiovascular: Negative Gastrointestinal: Negative Musculoskeletal: Arthralgia, Decreased ROM All Other Systems Reviewed And Are Negative: Yes Physical Exam Triage Information Reviewed: Yes Appearance: Well-Appearing, No Pain Distress, Well-Nourished Vital Signs: Initial Vital Signs Temp 98.4 F 12/27/17 08:08 Pulse 81 12/27/17 08:08 Resp 18 12/27/17 08:08 BP 146/98 12/27/17 08:08 Pulse Ox 97 12/27/17 08:08 Vital Signs Reviewed: Yes Eyes: Positive: Conjunctiva Clear ENT: Positive: Hearing grossly normal Neck: Positive: Supple Respiratory: Positive: No respiratory distress, No accessory muscle use Cardiovascular: Positive: Pulses Normal Abdomen Description: Positive: Soft Musculoskeletal: Positive: No Edema, ROM Limited @ - right hip, Other: - mildly tender right hip laterally. Mild right calf tenderness. Neg Homans. No calf swelling Neurological: Positive: Alert Psychological: Positive: Age Appropriate Behavior Skin: Negative: rashes Diagnostics - Radiology RIGHT HIP XRAY Xray Interpretation: Positive (See Comments) - 1. CAM DEFORMITY OF THE RIGHT FEMORAL NECK WHICH CAN BE ASSOCIATED WITH ACETABULAR IMPINGEMENT IN THE CORRECT CLINICAL SETTING. 2. MINIMAL DYSTROPHIC CALCIFICATION ALONG THE GREATER TROCHANTER OF THE RIGHT HIP. Lower Extremity Course/Dx - Course Course Of Treatment: Patient with cam deformity seen on x-ray which can be associated with impingement syndrome. This can explain his symptoms however given his finding of calf tenderness on exam discussed getting an ultrasound of his right lower extremity to rule out clot. In the setting of a positive x-ray this is less likely but still possible. Patient declines ultrasound today which is reasonable. Advised to follow-up in the ER if he develops increasing calf tenderness or develops redness or swelling of the leg, CP, SOB, fever or any other concerning symptoms. - Differential Dx/Diagnosis Provider Diagnoses: FEMOROACETABULAR IMPINGEMENT - RIGHT HIP Discharge - Sign-Out/Discharge Documenting (check all that apply): Discharge - Discharge Plan Condition: Stable Disposition: HOME Prescriptions: HYDROcodone/ACETAMIN 5-325 MG* [[place] 5-325 TAB*] 1 tab PO Q6H PRN #20 tab MDD 4 PRN Reason: Pain Naproxen 500 mg PO BID PRN #30 tablet PRN Reason: Pain Referrals: Sofia Jiménez MD [Primary Care Provider] - If Needed Emerson Brandon MD [Medical Doctor] - 1 Week Additional Instructions: XRAY SHOWS CAM DEFORMITY OF THE RIGHT FEMORAL NECK WHICH CAN BE ASSOCIATED WITH ACETABULAR IMPINGEMENT. ALSO MINIMAL DYSTROPHIC CALCIFICATION ALONG THE GREATER TROCHANTER OF THE RIGHT HIP. Femoroacetabular impingement Femoroacetabular impingement (TOMY) is abnormal contact between the anterior femoral head and the acetabular rim, which may increase the risk for osteoarthritis (OA) of the hip. The clinical presentation of TOMY is insidious and often deceptive. Mild symptoms of groin pain may occur variably for a long time (years) before abruptly worsening. Less commonly, pain is noticed in the buttocks. Early in the course, symptoms are minimal but are usually most noticeable after sitting with hips flexed to 90 degrees for a relatively long period (eg, working at a desk, taking a long automobile or plane ride) and then rising to the standing position. The ideal treatment for TOMY remains unknown due to the lack of long-term outcome studies for any of the current interventions. Physical therapy is directed at improving strength and correcting strength and mobility imbalances in the pelvic and lower extremity musculature. If an appropriate, aggressive rehabilitation regimen fails to bring about significant improvement after two to three months, athletes may consider surgical intervention. FOLLOW-UP WITH ORTHO TO DISCUSS TREATMENT OPTIONS. - Billing Disposition and Condition Condition: STABLE Disposition: HOME
--- NOTE | 2017-12-27 10:26 | RAD ---
HISTORY: Right hip pain COMPARISONS: August 26, 2016 pelvis film VIEWS: 3, Frontal view of the pelvis with frontal and frog-leg views of the right hip FINDINGS: BONE DENSITY: Normal. BONES: There is no displaced fracture. There is a cam deformity of the right femoral neck JOINTS: There is no arthropathy. ALIGNMENT: There is no dislocation. SOFT TISSUES: There is minimal dystrophic ossification along the greater trochanter the right hip. OTHER FINDINGS: None. IMPRESSION: 1. CAM DEFORMITY OF THE RIGHT FEMORAL NECK WHICH CAN BE ASSOCIATED WITH ACETABULAR IMPINGEMENT IN THE CORRECT CLINICAL SETTING. 2. MINIMAL DYSTROPHIC CALCIFICATION ALONG THE GREATER TROCHANTER OF THE RIGHT HIP. 3. NO ACUTE OSSEOUS INJURY. IF SYMPTOMS PERSIST, RECOMMEND REPEAT IMAGING
== END 2017-12-27 11:25 | disposition home or self-care (01) ==
LOC: UCEAST 07:50
DX: M25.851 Other specified joint disorders, right hip (principal); E03.9 Hypothyroidism, unspecified; I10 Essential (primary) hypertension; Z85.47 Personal history of malignant neoplasm of testis; Z87.891 Personal history of nicotine dependence
CPT/HCPCS: 96372; 99212; G0463; J1885

== ENCOUNTER 2019-11-01 18:04 | Emergency (ER) | payer BC ==
[2019-11-01 18:32] VITALS: BP 146/91
[2019-11-01 18:59] LABS: Influenza B Molecular POSITIVE (Negative)
[2019-11-01] MEDS ORDERED: Aspirin 81 mg CHEW TAB* 81 MG TAB.CHEW PO ONE (19:48)
[2019-11-01] MEDS ORDERED: Ibuprofen TAB* 600 MG PO ONE (19:49)
--- NOTE | 2019-11-01 19:50 | UC ---
FLU HPI - HPI Summary HPI Summary: 54-year-old male comes in with influenza-like symptoms for 2 days and chest pain and left arm pain that started today. Patient's daughters positive for influenza. He's been having fevers chills body aches sweats chest congestion shortness of breath for 2 days. Today he started with upper chest pressure and left arm pain. The pain is worse with laying down it's better with sitting up. Pain also gets worse with activity. He does have nausea sweating and shortness of breath. Denies any prior cardiac history. He is diabetic. - History of Current Complaint Chief Complaint: UCChestPain Stated Complaint: FEVER/COUGH Time Seen by Provider: 11/01/19 18:50 Pain Intensity: 3 - Allergy/Home Medications Allergies/Adverse Reactions: Allergies Allergy/AdvReac Type Severity Reaction Status Date / Time No Known Allergies Allergy Verified 11/01/19 18:32 Home Medications: Home Medications Levothyroxine TAB* [Synthroid 100 MCG TAB*] 100 mcg PO DAILY 10/28/12 [History Confirmed 12/27/17] Lisinopril TAB* [Prinivil TAB 10 MG*] 20 mg PO DAILY 10/28/12 [History Confirmed 12/27/17] Pioglitazone TAB* [Actos TAB*] 30 mg PO DAILY 10/28/12 [History Confirmed ] Aspirin TAB* [Aspirin 325 MG TAB*] 325 mg PO DAILY 07/06/17 [History Confirmed 12/27/17] Acetaminophen [Tylenol Extra Strength] 2 tab PO BID PRN 12/27/17 [History Confirmed 12/27/17] HYDROcodone/ACETAMIN 5-325 MG* [[place] 5-325 TAB*] 1 tab PO Q6H PRN #20 tab MDD 4 12/27/17 [Rx] Ibuprofen 1 tab PO BID PRN 12/27/17 [History Confirmed 12/27/17] Naproxen [Naproxen 500 mg tab] 500 mg PO BID PRN #30 tablet 12/27/17 [Rx] PMH/Surg Hx/FS Hx/Imm Hx Previously Healthy: Yes Endocrine History: Diabetes Cardiovascular History: Hypertension - Surgical History Surgical History: Yes Surgery Procedure, Year, and Place: Testicular Cancer Testicle removed 33 years ago with chemo. Exploratory abdominal surgery, toe-nail surgery. Knee arthroscopy, benign lump biopsies on chest. - Family History Known Family History: Positive: Other - prostate CA Negative: Diabetes, Blood Disorder - Social History Alcohol Use: Occasionally Substance Use Type: None Smoking Status (MU): Former Smoker Type: Smokeless Tobacco Amount Used/How Often: 1 can/day Length of Time of Smoking/Using Tobacco: 10 years Have You Smoked in the Last Year: No When Did the Patient Quit Smoking/Using Tobacco: 20 YEARS AGO - Immunization History Most Recent Influenza Vaccination: 2016 Most Recent Tetanus Shot: UNSURE Review of Systems All Other Systems Reviewed And Are Negative: Yes Constitutional: Positive: Fever, Chills, Other - SEE HPI Skin: Positive: Negative Eyes: Positive: Negative ENT: Positive: Sore Throat, Nasal Discharge, Sinus Congestion Respiratory: Positive: Shortness Of Breath, Cough, Other - SEE HPI Cardiovascular: Positive: Chest Pain, Other - SEE HPI Gastrointestinal: Positive: Nausea Motor: Positive: Negative Neurovascular: Positive: Negative Musculoskeletal: Positive: Myalgia Neurological/Mental Status: Positive: Headache Psychological: Positive: Negative Is Patient Immunocompromised?: No Physical Exam Triage Information Reviewed: Yes Appearance: No Pain Distress, Well-Nourished, Ill-Appearing - MILD Vital Signs: Initial Vital Signs Temp 99 F 11/01/19 18:23 Pulse 97 11/01/19 18:23 Resp 17 11/01/19 18:23 BP 146/91 11/01/19 18:23 Pulse Ox 98 11/01/19 18:23 Vital Signs Reviewed: Yes Eye Exam: Normal Eyes: Positive: Conjunctiva Clear ENT: Positive: Pharynx normal, Nasal congestion, Nasal drainage, TMs normal Neck: Positive: Supple Respiratory: Positive: Lungs clear, Normal breath sounds, No respiratory distress Cardiovascular: Positive: RRR Musculoskeletal: Positive: Strength Intact, ROM Intact, Other: - Arms have normal radial pulses normal sensation and full range of motion and full strength. Patient is mildly tender to palpation on the medial aspect of the upper arm. Neurological: Positive: Alert, Muscle Tone Normal Psychological: Positive: Age Appropriate Behavior Skin Exam: Normal Diagnostics - EKG Cardiac Rate: NL - AT 1837 Cardiac Rhythm: Sinus: Normal - 82BPM Ectopy: None - ST elevation in 3 aVF and anterolateral leads probable normal early repol Flu Course/Dx - Course Course Of Treatment: Patient has influenza. With having left upper chest and left arm pain with early repolarization on the EKG without old EKG to compare it to I recommended further evaluation in the emergency department for the chest and arm pain. Patient prefers to go by POV. Here in clinic he was given ibuprofen 600 mg by mouth for his influenza and aspirin 324 mg by mouth for his chest pain. - Differential Dx/Diagnosis Provider Diagnosis: Influenza, Left arm pain, Chest pain Discharge ED - Sign-Out/Discharge Documenting (check all that apply): Patient Departure All imaging exams completed and their final reports reviewed: No Studies - Discharge Plan Condition: Stable Disposition: HOME-RECOMMEND TO ED Patient Education Materials: Chest Pain (ED), Influenza (ED) Referrals: Sofia Jiménez MD [Primary Care Provider] - Additional Instructions: GO DIRECTLY TO THE EMERGENCY DEPARTMENT FOR FURTHER EVALUATION OF YOUR CHEST AND LEFT ARM PAIN. - Billing Disposition and Condition Condition: STABLE Disposition: Home-Recommend to ED
[2019-11-01] MEDS ORDERED: Ibuprofen ADULT LIQ* 600 MG/30 ML UDC PO ONE (19:57)
== END 2019-11-01 20:04 | disposition home health service (06) ==
LOC: UCEAST 18:04
DX: J11.1 Influenza due to unidentified influenza virus with other respiratory manifestations (principal); M79.602 Pain in left arm; R07.9 Chest pain, unspecified; I10 Essential (primary) hypertension; E11.9 Type 2 diabetes mellitus without complications; R11.0 Nausea; Z87.891 Personal history of nicotine dependence; Z79.82 Long term (current) use of aspirin; Z79.899 Other long term (current) drug therapy
CPT/HCPCS: 93005; 99212; A9270-GY; G0463

== ENCOUNTER 2019-11-01 20:23 | Emergency (ER) | payer BC ==
[2019-11-01 20:44] LABS: ABS Eosinophils 0.1 10^3/ul (0-0.6); ABS Lymphocytes 0.8 10^3/ul (1.0-4.8); ABS Neutrophils 2.6 10^3/ul (1.5-7.7); Eosinophil % 1.9 %; Hematocrit 42 % (42-52); Hemoglobin 14.8 g/dL (14.0-18.0); Lymphocyte % 18.5 %; Mean Corpuscular HGB Conc 35 g/dL (31-36); Mean Corpuscular Hemoglobin 32 pg (27-31); Mean Corpuscular Volume 91 fL (80-94); Mean Platelet Volume 9.6 fL (7.4-10.4); Platelet Count 141 10^3/uL (150-450); Red Blood Count 4.61 10^6 /uL (4.18-5.48); Red Cell Distribution Width 13 % (10-15); White Blood Count 4.6 10^3/uL (3.5-10.8)
[2019-11-01 20:54] LABS: INR 1.08 (0.82-1.09)
[2019-11-01 21:01] LABS: Albumin 4.4 g/dL (3.2-5.2); Albumin/Globulin Ratio 1.5 (1-3); BUN/Creatinine Ratio 13.8 (8-20); Calcium 8.9 mg/dL (8.6-10.3); EGFR Non-African American 84.3 (>60); Globulin 2.9 g/dL (2-4); Potassium 3.8 mmol/L (3.5-5.0); Total Bilirubin 0.7 mg/dL (0.2-1.0); Total Protein 7.3 g/dL (6.4-8.9)
[2019-11-01 21:02] LABS: Troponin I 0.02 ng/mL (<0.03)
--- NOTE | 2019-11-01 21:26 | ED ---
HPI Chest Pain - HPI Summary HPI Summary: 54-year-old male with a significant past medical history of type 2 diabetes, hyperlipidemia, hypertension presents to the emergency department today complaining of chest pain, left arm pain. Patient was recently diagnosed with influenza earlier today at urgent care (1200) when he started experiencing left arm pain with certain positions which lasts approximately 10 minutes with each episode. Patient states the pain is a 6 out of 10" aching pain". Patient has taken ibuprofen this afternoon for alleviation of his pain. Patient states his chest pain is sternal and worse with coughing. Patient states his chest pain began while he was sitting on the couch and he has no associated lightheadedness , jaw pain, diaphoresis, shortness of breath. Patient is otherwise well and denies nausea, vomiting, diarrhea, rash, headache, pain with urination. Surgical history and family history is noncontributory. - History of Current Complaint Chief Complaint: EDChestPainROMI Time Seen by Provider: 11/01/19 20:45 Hx Obtained From: Patient Onset/Duration: Started Hours Ago Timing: Constant Initial Severity: Moderate Current Severity: Moderate Pain Intensity: 6 Pain Scale Used: 0-10 Numeric Chest Pain Location: Mid Sternal Chest Pain Radiates: Yes Chest Pain Radiates To:: Arm Character: Cough, Non-Productive Aggravating Factor(s): Position Associated Signs and Symptoms: Positive: Chest Pain, Fever, Cough, URI - Allergy/Home Medications Allergies/Adverse Reactions: Allergies Allergy/AdvReac Type Severity Reaction Status Date / Time No Known Allergies Allergy Verified 11/01/19 18:32 Home Medications: Home Medications Levothyroxine TAB* [Synthroid 100 MCG TAB*] 100 mcg PO DAILY 10/28/12 [History Confirmed 12/27/17] Lisinopril TAB* [Prinivil TAB 10 MG*] 20 mg PO DAILY 10/28/12 [History Confirmed 12/27/17] Pioglitazone TAB* [Actos TAB*] 30 mg PO DAILY 10/28/12 [History Confirmed ] Aspirin TAB* [Aspirin 325 MG TAB*] 325 mg PO DAILY 07/06/17 [History Confirmed 12/27/17] Acetaminophen [Tylenol Extra Strength] 2 tab PO BID PRN 12/27/17 [History Confirmed 12/27/17] HYDROcodone/ACETAMIN 5-325 MG* [[place] 5-325 TAB*] 1 tab PO Q6H PRN #20 tab MDD 4 12/27/17 [Rx] Ibuprofen 1 tab PO BID PRN 12/27/17 [History Confirmed 12/27/17] Naproxen [Naproxen 500 mg tab] 500 mg PO BID PRN #30 tablet 12/27/17 [Rx] PMH/Surg Hx/FS Hx/Imm Hx Endocrine/Hematology History: Reports: Hx Diabetes - TYpe II, Hx Thyroid Disease Cardiovascular History: Reports: Hx Hypertension - ON MEDS Comment Only: Other Cardiovascular Problems/Disorders - 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 Exploratory abdominal surgery, toe-nail surgery. Knee arthroscopy, benign lump biopsies on chest. Infectious Disease History: No Infectious Disease History: Denies: History Other Infectious Disease, Traveled Outside the [place] in Last 30 Days - Family History Known Family History: Positive: Other - prostate CA Negative: Diabetes, Blood Disorder - Social History Alcohol Use: Occasionally Substance Use Type: Reports: None Hx Tobacco Use: Yes - CHEWING-CEASED 07/2019 Smoking Status (MU): Former Smoker Type: Smokeless Tobacco Amount Used/How Often: 1 can/day Length of Time of Smoking/Using Tobacco: 10 years Have You Smoked in the Last Year: No Review of Systems Positive: Fever, Fatigue Eyes: Negative ENT: Negative Positive: Chest Pain Positive: Cough Gastrointestinal: Negative Genitourinary: Negative Musculoskeletal: Negative Skin: Negative Neurological/Mental Status: Negative Psychological: Normal All Other Systems Reviewed And Are Negative: Yes Physical Exam - Summary Physical Exam Summary: Patient is in no acute distress. Patient has full range of motion of the left upper extremity. Radial pulse 2+. 5 out of 5 strength in the upper extremity as bilaterally. Patient is neurovascularly intact with full motor function of the median, ulnar, radial nerve. Triage Information Reviewed: Yes Vital Signs On Initial Exam: Initial Vitals Temp Pulse Resp BP Pulse Ox 98.2 F 70 18 167/101 97 11/01/19 20:26 11/01/19 20:26 11/01/19 20:26 11/01/19 20:26 11/01/19 20:26 Vital Signs Reviewed: Yes Appearance: Positive: Well-Appearing, No Pain Distress, Well-Nourished Skin: Positive: Warm, Skin Color Reflects Adequate Perfusion Eyes: Positive: EOMI, IRIS ENT: Positive: Hearing grossly normal Respiratory/Lung Sounds: Positive: Clear to Auscultation, Breath Sounds Present Cardiovascular: Positive: RRR, S1, S2 Abdomen Description: Positive: Nontender, Soft Bowel Sounds: Positive: Present Musculoskeletal: Positive: Strength/ROM Intact Neurological: Positive: Sensory/Motor Intact, Alert, Oriented to Person Place, Time, Normal Gait, Facial Symmetry, Speech Normal Psychiatric: Positive: Normal, Affect/Mood Appropriate AVPU Assessment: Alert Procedures - Sedation Patient Received Moderate/Deep Sedation with Procedure: No Diagnostics - Vital Signs Vital Signs Temp Pulse Resp BP Pulse Ox 11/01/19 20:26 98.2 F 70 18 167/101 97 - Laboratory Lab Results: Lab Results 11/01/19 11/01/19 11/01/19 Range/Units 20:36 20:36 20:36 WBC 4.6 (3.5-10.8) 10^3/uL RBC 4.61 (4.18-5.48) 10^6 /uL Hgb 14.8 (14.0-18.0) g/dL Hct 42 (42-52) % MCV 91 (80-94) fL MCH 32 H (27-31) pg MCHC 35 (31-36) g/dL RDW 13 (10-15) % Plt Count 141 L (150-450) 10^3/uL MPV 9.6 (7.4-10.4) fL Neut % (Auto) 56.7 % Lymph % (Auto) 18.5 % [place] % (Auto) 22.3 % Eos % (Auto) 1.9 % Baso % (Auto) 0.6 % Absolute Neuts (auto) 2.6 (1.5-7.7) 10^3/ul Absolute Lymphs (auto) 0.8 L (1.0-4.8) 10^3/ul Absolute Monos (auto) 1.0 H (0-0.8) 10^3/ul Absolute Eos (auto) 0.1 (0-0.6) 10^3/ul Absolute Basos (auto) 0.0 (0-0.2) 10^3/ul Absolute Nucleated RBC 0.0 10^3/ul Nucleated RBC % 0.0 INR (Anticoag Therapy) 1.08 (0.82-1.09) Sodium 136 (135-145) mmol/L Potassium 3.8 (3.5-5.0) mmol/L Chloride 101 (101-111) mmol/L Carbon Dioxide 27 (22-32) mmol/L Anion Gap 8 (2-11) mmol/L BUN 13 (6-24) mg/dL Creatinine 0.94 (0.67-1.17) mg/dL Est GFR ( Amer) 102.0 (>60) Est GFR (Non-Af Amer) 84.3 (>60) BUN/Creatinine Ratio 13.8 (8-20) Glucose 286 H (70-100) mg/dL Calcium 8.9 (8.6-10.3) mg/dL Total Bilirubin 0.70 (0.2-1.0) mg/dL AST 15 (13-39) U/L ALT 22 (7-52) U/L Alkaline Phosphatase 61 (34-104) U/L Troponin I 0.02 (<0.03) ng/mL Total Protein 7.3 (6.4-8.9) g/dL Albumin 4.4 (3.2-5.2) g/dL Globulin 2.9 (2-4) g/dL Albumin/Globulin Ratio 1.5 (1-3) Result Diagrams: 11/01/19 20:36 11/01/19 20:36 Lab Statement: Any lab studies that have been ordered have been reviewed, and results considered in the medical decision making process. Chest Pain Course/Dx - Course Course Of Treatment: Patient was evaluated in the emergency department today for chest pain. Vitals noted and stable. EKG was done promptly which shows normal sinus rhythm at a rate of 77 beats a minute. No evidence of STEMI. Normal MO and QTc intervals. No priors available for comparison. Chest x-ray shows no evidence of pneumonia. Laboratory studies returned showing no significant abnormalities with no evidence of leukocytosis, anemia, electrolyte disturbance. Initial troponin 0.02. Serial troponins were deemed unnecessary as patient has been symptomatic for 7 hours. Heart score: 3. There appeared to be no acute pathology requiring intervention at this time. Patient discharged to outpatient follow-up. - Chest Pain Differential Diagnosis/HQI/PQRI: Acute MO, ACS, Angina, Lower Respiratory Infection - Diagnoses Provider Diagnoses: Atypical chest pain Discharge ED - Sign-Out/Discharge Documenting (check all that apply): Patient Departure - Discharge Plan Condition: Stable Disposition: HOME Patient Education Materials: Chest Pain (ED) Referrals: Sofia Jiménez MD [Primary Care Provider] - 3 Days Additional Instructions: You were seen in the emergency department today due to chest pain. An EKG, chest x-ray, blood work was done today which showed no evidence of acute pathology requiring intervention at this time. Although no evidence of acute medical pathology was found during your visit today I cannot be certain your symptoms are not due to cardiac origin. Please follow-up with your primary care provider or carpet installer helper in 3-4 days for further evaluation and management. Please return to the emergency department immediately if you develop any new or worsening symptoms. - Billing Disposition and Condition Condition: STABLE Disposition: Home - Attestation Statements Provider Attestation: I was available for consult. This patient was seen by the DEEDEE. The patient was not presented to, seen by, or examined by me. Sarkis Nick MD
[2019-11-01 22:11] VITALS: BP 142/80
== END 2019-11-01 22:14 | disposition home or self-care (01) ==
LOC: ED 20:23
DX: R07.89 Other chest pain (principal); E11.9 Type 2 diabetes mellitus without complications; I10 Essential (primary) hypertension; E03.9 Hypothyroidism, unspecified; Z87.891 Personal history of nicotine dependence; Z79.82 Long term (current) use of aspirin; Z79.899 Other long term (current) drug therapy; Z79.84 Long term (current) use of oral hypoglycemic drugs; Z85.47 Personal history of malignant neoplasm of testis
CPT/HCPCS: 36415; 71046; 80053; 84484; 85025; 85610; 93005; 99283

== ENCOUNTER 2021-06-08 15:39 | Inpatient (IN) ==
[2021-06-08 18:52] LABS: ABS Lymphocytes 1.1 10^3/ul (1.0-4.8); ABS Neutrophils 12.8 10^3/ul (1.5-7.7); Eosinophil % 0.1 %; Hematocrit 54 % (42-52); Hemoglobin 17.9 g/dL (14.0-18.0); Lymphocyte % 7.5 %; Mean Corpuscular HGB Conc 33 g/dL (31-36); Mean Corpuscular Hemoglobin 31 pg (27-31); Mean Corpuscular Volume 94 fL (80-94); Mean Platelet Volume 9.6 fL (7.4-10.4); Nucleated Red Blood Cells % 0.2; Platelet Count 174 10^3/uL (150-450); Red Blood Count 5.71 10^6 /uL (4.18-5.48); Red Cell Distribution Width 12 % (10-15)
[2021-06-08 19:01] LABS: Albumin/Globulin Ratio 1.6 (1-3); C Reactive Protein 8.09 mg/L (<8.01); Calcium 10.2 mg/dL (8.6-10.3); EGFR African American 99.1 (>60); EGFR Non-African American 81.9 (>60); Globulin 3.2 g/dL (2-4); Potassium 4.3 mmol/L (3.5-5.0); Total Bilirubin 1.2 mg/dL (0.2-1.0); Total Protein 8.2 g/dL (6.4-8.9)
[2021-06-08 19:14] LABS: Urine Appearance Clear; Urine Bilirubin Negative (Negative); Urine Blood Negative (Negative); Urine Color Yellow; Urine Glucose 3+(>=500 mg/dL) (Negative); Urine Ketones 1+ (Negative); Urine Nitrite Negative (Negative); Urine Protein Negative (Negative); Urine Urobilinogen Negative (Negative)
[2021-06-08] MEDS ORDERED: Ondansetron 4 mg VIAL 2 MG/ML 2 ml VIAL IV ONE (19:30)
[2021-06-08] MEDS ORDERED: NS 0.9% 1000 ml BAG 1,000 ML IV ONE (19:31)
[2021-06-08] MEDS ORDERED: Iodixanol (CONTRAST) 320 MG/ML 100 ML SDV IV ONE (19:43)
[2021-06-08] MEDS: Morphine 4 MG/ML VIAL (1 ml) IV ONE (19:58)
[2021-06-08] MEDS ORDERED: Enoxaparin 40 MG/0.4 ML SYR SUBCUT SCH (22:00)
[2021-06-08] MEDS ORDERED: NS 0.9% 1000 ml BAG 1,000 ML IV SCH (22:00)
[2021-06-08] MEDS ORDERED: Dextrose 50% Syringe 50 ml 25 GM/50 ML SYRINGE IV PUSH PRN (22:44)
[2021-06-09] MEDS ORDERED: Ondansetron 4 mg VIAL 2 MG/ML 2 ml VIAL IV ONE (00:20)
[2021-06-09] MEDS ORDERED: Morphine 4 MG/ML VIAL (1 ml) IV ONE (00:20)
[2021-06-09] MEDS: Ondansetron 4 mg VIAL 2 MG/ML 2 ml VIAL IV PRN ×3 (00:25→16:25)
[2021-06-09] MEDS: Morphine 4 MG/ML VIAL (1 ml) IV ONE (00:26)
[2021-06-09] MEDS: Lactated Ringers 1000 ml BAG 1,000 ML IV SCH ×3 (02:34→19:29)
[2021-06-09] MEDS: Enoxaparin 40 MG/0.4 ML SYR SUBCUT SCH (04:09)
[2021-06-09 06:11] LABS: ABS Monocytes 1.3 10^3/ul (0-0.8); ABS Neutrophils 8.1 10^3/ul (1.5-7.7); Eosinophil % 0.4 %; Hematocrit 46 % (42-52); Hemoglobin 15.7 g/dL (14.0-18.0); Lymphocyte % 9.4 %; Mean Corpuscular HGB Conc 34 g/dL (31-36); Mean Corpuscular Hemoglobin 32 pg (27-31); Mean Corpuscular Volume 94 fL (80-94); Mean Platelet Volume 9.2 fL (7.4-10.4); Nucleated Red Blood Cells % 0.1; Platelet Count 189 10^3/uL (150-450); Red Blood Count 4.89 10^6 /uL (4.18-5.48); Red Cell Distribution Width 12 % (10-15); White Blood Count 10.4 10^3/uL (3.5-10.8)
[2021-06-09] MEDS: Levothyroxine 100 MCG/5 ML VIAL IV SCH (06:16)
[2021-06-09 06:39] LABS: C Reactive Protein 11.13 mg/L (<8.01); Magnesium 2.1 mg/dL (1.9-2.7)
[2021-06-09] MEDS: Acetaminophen IV 1 GM/100ML 100 ML IV PRN ×2 (08:33→20:58)
[2021-06-09] MEDS ORDERED: Flu vaccine *QUAD* 2021-22* 0.5 ML SYRINGE IM ONE (09:00)
[2021-06-09 11:08] LABS: Rapid COVID-19 Molecular Undetected (Undetected)
[2021-06-10] MEDS: Lactated Ringers 1000 ml BAG 1,000 ML IV SCH ×2 (04:43→22:33)
[2021-06-10] MEDS: Levothyroxine 100 MCG/5 ML VIAL IV SCH (05:18)
[2021-06-10 06:52] LABS: Hematocrit 42 % (42-52); Hemoglobin 14.2 g/dL (14.0-18.0); Mean Corpuscular HGB Conc 34 g/dL (31-36); Mean Corpuscular Hemoglobin 32 pg (27-31); Mean Corpuscular Volume 94 fL (80-94); Mean Platelet Volume 9.1 fL (7.4-10.4); Platelet Count 150 10^3/uL (150-450); Red Blood Count 4.44 10^6 /uL (4.18-5.48); Red Cell Distribution Width 13 % (10-15); White Blood Count 5.3 10^3/uL (3.5-10.8)
[2021-06-10 07:06] LABS: Calcium 8.4 mg/dL (8.6-10.3); EGFR African American 114.1 (>60); EGFR Non-African American 94.3 (>60); Potassium 4.1 mmol/L (3.5-5.0)
[2021-06-10] MEDS: Enoxaparin 40 MG/0.4 ML SYR SUBCUT SCH (10:22)
[2021-06-11] MEDS: Lactated Ringers 1000 ml BAG 1,000 ML IV SCH (06:59)
[2021-06-11] MEDS: Enoxaparin 40 MG/0.4 ML SYR SUBCUT SCH (08:33)
[2021-06-11 11:34] VITALS: BP 128/75
== END 2021-06-11 14:37 | disposition home or self-care (01) | DRG 247 ==
LOC: SSU 15:39 → ED 15:39 → SUATTDRO 21:50 → SSU 06-09 01:19 → SUATTDRO 06-09 01:37 → OBSVTOIN 06-09 01:37
PROVIDERS: ADMIT Internal Medicine; ATTEND Internal Medicine

== ENCOUNTER 2023-08-30 06:14 | Observation (INO) ==
[~2023-08-30 06:14] MED LIST: Buffered Lidocaine 1% SYRIN 1 ml INTRADERM ONE; Lactated Ringers 1000 ml BAG 1,000 ML IV SCH
[2023-08-30] MEDS ORDERED: ROPIVACAINE 5 MG/ML 30 ML BTL (0.5%) ONE (06:55)
[2023-08-30] MEDS ORDERED: Phenylephrine IV 10 MG/ML 1 ml VIAL ONE (06:58)
[2023-08-30] MEDS ORDERED: fentaNYL 100 mcg/2 ml 50 MCG/ML VIAL ONE (06:58)
[2023-08-30] MEDS ORDERED: Lidocaine 2% PF 5 ML VIAL ONE (06:58)
[2023-08-30] MEDS ORDERED: Midazolam 2 mg/2 ml VIAL 1 mg/ml 2 ml VIAL (2 mg) ONE ×2 (06:59→08:14)
[2023-08-30] MEDS ORDERED: Tranexamic Acid 1 GM/100ML BAG 2,000 MG/200 ML BAG IV ONE (07:07)
[2023-08-30] MEDS ORDERED: ceFAZolin 2 GM PREMIX 2 GM/50 ML BAG ONE (07:07)
[2023-08-30 07:44] LABS: Rapid COVID-19 Molecular Undetected (Undetected)
[2023-08-30] MEDS ORDERED: Dexamethasone IV 4 MG/ML VIAL 1 ml VIAL ONE (08:52)
[2023-08-30] MEDS ORDERED: Ondansetron 4 mg VIAL 2 MG/ML 2 ml VIAL ONE (08:52)
[2023-08-30] MEDS ORDERED: Naloxone 0.4 mg VIAL 0.4 mg/ml 1 ml VIAL IV PRN (09:06)
[2023-08-30] MEDS ORDERED: HYDROmorphone 1 MG/1 ML SYRINGE IV PRN (09:06)
[2023-08-30] MEDS ORDERED: Propofol 10 MG/ML 20 ML BTL ONE ×2 (09:16→13:18)
[2023-08-30] MEDS ORDERED: Ondansetron ODT 4 mg TAB 4 MG TAB PO PRN (09:26)
[2023-08-30] MEDS ORDERED: Lactulose 30 ml UDC PO PRN (09:26)
[2023-08-30] MEDS ORDERED: Ondansetron 4 mg VIAL 2 MG/ML 2 ml VIAL IV PRN (09:26)
[2023-08-30] MEDS ORDERED: Magnesium Hydroxide LIQ 30 ML UDC PO PRN (09:26)
[2023-08-30] MEDS ORDERED: Acetaminophen IV 1 GM/100ML 0 MG/0 ML BAG IV ONE (10:09)
[2023-08-30] MEDS ORDERED: Dextrose 50% Syringe 50 ml 25 GM/50 ML SYRINGE IV PUSH PRN (11:01)
[2023-08-30] MEDS ORDERED: HYDROmorphone 1 MG/1 ML SYRINGE ONE (12:35)
[2023-08-30] MEDS ORDERED: Acetaminophen IV 1 GM/100ML 1,000 MG/100 ML BAG IV ONE (12:43)
[2023-08-30] MEDS ORDERED: Bupivacaine-MPF SPINAL 7.5 MG/ML - 2ML AMP ONE (13:18)
[2023-08-30] MEDS ORDERED: Morphine 2 MG/ML SYRINGE ONE (14:09)
[2023-08-30] MEDS: Morphine 2 MG/ML SYRINGE IV PRN (14:10)
[2023-08-30] MEDS: Lactated Ringers 1000 ml BAG 1,000 ML IV SCH (14:43)
[2023-08-30] MEDS: ceFAZolin 1 GM ADVAN 1 GM in NS 0.9% 50 ML 50 ML IVPB SCH (17:36)
[2023-08-30] MEDS: Magnesium Hydroxide LIQ 30 ML UDC PO SCH (20:59)
[2023-08-31] MEDS: Lactated Ringers 1000 ml BAG 1,000 ML IV SCH (00:13)
[2023-08-31] MEDS: ceFAZolin 1 GM ADVAN 1 GM in NS 0.9% 50 ML 50 ML IVPB SCH ×2 (00:17→08:10)
[2023-08-31] MEDS: Morphine 2 MG/ML SYRINGE IV PRN (02:39)
[2023-08-31 06:32] LABS: Platelet Count 165 10^3/uL (150-450)
[2023-08-31 07:04] LABS: Calcium 8.7 mg/dL (8.6-10.3); Creatinine, Serum 0.95 mg/dL (0.67-1.17); Potassium 4.7 mmol/L (3.5-5.0); eGFR CKD-EPI 93.9 (>60)
[2023-08-31 08:12] LABS: Hematocrit 36.8 % (38-53); Hemoglobin 12.8 g/dL (13.2-16.3); Mean Platelet Volume 9.8 fL (7.5-11.2)
[2023-08-31] MEDS: Magnesium Hydroxide LIQ 30 ML UDC PO SCH (08:21)
[2023-08-31] MEDS ORDERED: Vitamin THERAPEUTIC TAB PO SCH (09:00)
[2023-08-31 09:17] VITALS: BP 115/70
== END 2023-08-31 12:40 | disposition home or self-care (01) ==
LOC: OR 06:14 → SSU 06:14 → EDSTATUS 07:45
PROVIDERS: ADMIT Orthopaedic Surgery Adult Reconstructive Orthopaedic Surgery; ATTEND Orthopaedic Surgery Adult Reconstructive Orthopaedic Surgery

== ENCOUNTER 2024-08-08 20:18 | Observation (INO) ==
[2024-08-08] MEDS: Ondansetron 4 mg VIAL 2 MG/ML 2 ml VIAL IV ONE (21:12)
[2024-08-08] MEDS: Morphine 4 MG/ML VIAL (1 ml) IV ONE (21:12)
[2024-08-08] MEDS: NS 0.9% 1000 ml BAG 1,000 ML IV ONE (21:13)
[2024-08-08 21:17] LABS: ABS Basophils 0.1 10^3/uL (0.0-0.1); ABS Eosinophils 0.1 10^3/uL (0.0-0.5); ABS Lymphocytes 2.2 10^3/uL (1.0-4.8); ABS Monocytes 0.8 10^3/uL (0.0-1.1); ABS Neutrophils 7.4 10^3/uL (1.5-7.6); ABS Nucleated RBC 0.02 10^3/ul; Eosinophil % 0.5 %; Hematocrit 45.1 % (38-53); Hemoglobin 15.8 g/dL (13.2-16.3); Lymphocyte % 21.1 %; Mean Corpuscular Hemoglobin 31.7 pg (27-33); Mean Corpuscular Volume 90.6 fL (80-97); Mean Platelet Volume 9.1 fL (7.5-11.2); Nucleated Red Blood Cells % 0.2 %/100WBC (0.0-0.8); Platelet Count 205 10^3/uL (150-450); Red Blood Count 4.98 10^6/uL (4.06-5.63); Red Cell Distribution Width 12.4 % (12-17); White Blood Count 10.5 10^3/uL (3.6-10.2)
[2024-08-08 21:44] LABS: Albumin 4.8 g/dL (3.2-5.2); Albumin/Globulin Ratio 2.1 (1-3); C Reactive Protein 1.58 mg/L (<8.01); Creatinine, Serum 0.87 mg/dL (0.67-1.17); Globulin 2.3 g/dL (2-4); Potassium 3.9 mmol/L (3.5-5.0); Total Bilirubin 0.9 mg/dL (0.2-1.0); Total Protein 7.1 g/dL (6.4-8.9); eGFR CKD-EPI 100.6 (>60)
[2024-08-08] MEDS: Iohexol 350 (CONTRAST) 500 ML MDV IV ONE (22:03)
[2024-08-08 22:50] LABS: Urine Appearance Clear; Urine Bilirubin Negative (Negative); Urine Blood Negative (Negative); Urine Color Light-Yellow; Urine Glucose 4+ (>=1000 mg/dL) (Negative); Urine Ketones Trace (Negative); Urine Nitrite Negative (Negative); Urine Protein Negative (Negative); Urine Urobilinogen Negative (Negative)
[2024-08-09] MEDS: Lactated Ringers 1000 ml BAG 1,000 ML IV SCH ×2 (00:57→09:51)
[2024-08-09] MEDS: Heparin 5000 UNITS/ML 1 mL VIAL SUBCUT SCH (05:34)
[2024-08-09] MEDS ORDERED: Dextrose 50% Syringe 50 ml 25 GM/50 ML SYRINGE IV PUSH PRN (05:50)
[2024-08-09] MEDS ORDERED: Ondansetron 4 mg VIAL 2 MG/ML 2 ml VIAL IV PRN (05:52)
[2024-08-09] MEDS: Acetaminophen IV 1 GM/100ML 500 MG/50 ML BAG IV PRN (05:59)
[2024-08-09] MEDS: Levothyroxine 100 MCG/5 ML VIAL IV SCH (06:15)
[2024-08-09 06:54] LABS: T4, Total 8.58 mcg/dL (6.09-12.23)
[2024-08-09 06:58] LABS: TSH Ultra Thyroid Stim Horm 6.02 mcIU/mL (0.34-5.60)
[2024-08-09 07:53] LABS: ABS Eosinophils 0.2 10^3/uL (0.0-0.5); ABS Lymphocytes 1.8 10^3/uL (1.0-4.8); ABS Monocytes 0.7 10^3/uL (0.0-1.1); ABS Neutrophils 6.6 10^3/uL (1.5-7.6); Eosinophil % 1.7 %; Hemoglobin 14.8 g/dL (13.2-16.3); Mean Corpuscular Hemoglobin 32.3 pg (27-33); Mean Corpuscular Hgb Conc 35.2 g/dL (31-36); Mean Corpuscular Volume 91.8 fL (80-97); Mean Platelet Volume 9.1 fL (7.5-11.2); Platelet Count 188 10^3/uL (150-450); Red Blood Count 4.58 10^6/uL (4.06-5.63); Red Cell Distribution Width 12.4 % (12-17); White Blood Count 9.3 10^3/uL (3.6-10.2)
[2024-08-09 08:45] LABS: Calcium 8.7 mg/dL (8.6-10.3); Creatinine, Serum 0.83 mg/dL (0.67-1.17); Potassium 4.1 mmol/L (3.5-5.0); eGFR CKD-EPI 102.1 (>60)
[2024-08-09] MEDS: Morphine 4 MG/ML VIAL (1 ml) IV PRN (09:57)
[2024-08-10] MEDS: Levothyroxine 100 MCG/5 ML VIAL IV SCH (05:52)
[2024-08-10 07:03] LABS: Hematocrit 42.3 % (38-53); Hemoglobin 15.1 g/dL (13.2-16.3); Mean Corpuscular Hemoglobin 32.6 pg (27-33); Mean Corpuscular Hgb Conc 35.7 g/dL (31-36); Mean Corpuscular Volume 91.4 fL (80-97); Platelet Count 169 10^3/uL (150-450); Red Blood Count 4.62 10^6/uL (4.06-5.63); Red Cell Distribution Width 12.3 % (12-17); White Blood Count 5.3 10^3/uL (3.6-10.2)
[2024-08-10 07:43] LABS: Calcium 8.7 mg/dL (8.6-10.3); Creatinine, Serum 0.75 mg/dL (0.67-1.17); Potassium 4.1 mmol/L (3.5-5.0); eGFR CKD-EPI 105.3 (>60)
[2024-08-10 14:10] VITALS: BP 156/96
== END 2024-08-10 15:42 | disposition home or self-care (01) ==
LOC: ED 20:18 → SUATTDRO 08-09 03:33 → INTOOBSV 08-09 03:33 → EDHOLD 08-09 03:33 → MED 08-09 07:21
PROVIDERS: ADMIT Internal Medicine; ATTEND Internal Medicine